=== PATIENT | female | born 1985 | race Caucasian/White ===

== ENCOUNTER → 2024-12-02 | Outpatient (CLI) | payer OTHER, SELFPAY ==
[2024-12-02 17:11] LABS: Absolute Lymphocyte Count 1.93 X10^3/uL (0.83-4.51); Absolute Neutrophil Count 5.7 X10^3/uL (2.0-7.7); Basophil# 0.04 X10^3/uL; Basophil% 0.5 % (0-1); Eosinophil# 0.07 X10^3/uL; Eosinophils% 0.8 % (0-5); Hemoglobin 12.4 g/dL (12.0-15.0); Lymphocyte # 1.93 X10^3/ul (0.83-4.51); Lymphocyte % 23.3 % (19-41); Mean Corp Hgb Conc 33.5 g/dL (32-36); Mean Corpuscular Hgb 28.6 pg (27.0-32.0); Mean Corpuscular Volume 85.5 fL (81-99); Mean Platelet Vol. 10.1 fl (6.2-12.0); NRBC Flagged by Analyzer 0 % (0-5); Neutrophil # 5.71 X10^3/uL (2.7-7.7); Neutrophil % 68.9 % (47-70); Platelet Count 316 K/mm3 (150-450); RBC Distribution Width CV 12.8 % (11.6-14.6); RBC Distribution Width SD 39.8 fl (35.1-43.9); Red Blood Count 4.33 M/mm3 (4.2-5.4); White Blood Count 8.3 K/mm3 (4.4-11.0)
[2024-12-02 17:58] LABS: ALB/GLOB Ratio 1.4 RATIO (0.9-2.4); AST(SGOT) 22 U/L (<=31); Alanine Aminotransfer ALT/SGPT 18 U/L (<=34); Alkaline Phosphatase 72 U/L (35-104); Anion Gap 11 (5-15); BUN 12 mg/dL (4-19); Calcium,Total 9.2 mg/dL (7.6-11.0); Chloride 104 mmol/L (98-108); Cholesterol 191 mg/dL (<=200); Creatinine, Serum 0.83 mg/dL (0.70-1.20); EST Glomerular Filtration Rate 93 (>60); Globulin 2.8 g/dL (2.2-4.2); Glucose 113 mg/dL (70-99); High Density Lipoprotein 58 mg/dL; Low Density Lipoprotein Calc. 115 mg/dL; Protein, Total 6.8 g/dL (5.9-8.4); Sodium Level 137 mmol/L (133-145); Total Bilirubin 0.34 mg/dL (0.00-1.30); Triglycerides 93 mg/dL; Very Low Density Lipoprotein 19 mg/dL (5-40); cholesterol:hdl ratio screen 3.31
[2024-12-02 19:05] LABS: Hemoglobin A1c 5.2 % (<=5.6)
== END | disposition home or self-care (01) ==
LOC: VSLAB 15:37
PROVIDERS: PCP Nurse Practitioner Family; Visit Provider Nurse Practitioner Family
DX: Z00.00 Encounter for general adult medical examination without abnormal findings (principal); E55.9 Vitamin D deficiency, unspecified; E78.5 Hyperlipidemia, unspecified; E66.9 Obesity, unspecified
CPT/HCPCS: 36415; 80053; 80061; 82306; 83036; 84443; 85025

== ENCOUNTER → 2025-03-26 | Outpatient (CLI) | payer OTHER, SELFPAY ==
--- OUTSIDE RECORDS SUMMARY | 2025-03-26 10:43 | XMS RPT_ITS | CCD ---
Author Organization [facility] Care Team Providers Care Commissioning Agent Name Role Phone TJ MARIANO Attending Unavailable MORRIS AGUIRRE Referring Unavailable NO PRIMARY CARE, Primary Care Unavailable GABRIEL LOZANO Attending Unavailable MURALI BARRETO Referring Unavailable NO PRIMARY CARE, Primary Care Unavailable Unavailable Primary Care Provider Unavailkim e Caridad Elaine DO Unavailable Laura Turner Unavailable [phone] Unavailable Primary Care Provider UnavailAna Kenny MD Primary Care Provider JOHNNY MERLOS Referring Unavailable JOHNNY MERLOS Attending Unavailable BUENROSTRO, ANA Primary Care Unavailable EMORYJOHNNY Krishna Attending Unavailable BUENROSTRO, ANA Primary Care Unavailable EMORY JOHNNY Referring Unavailable SEBASTIAN CUTLER Attending Unavailable BUENROSTRO, ANA Primary Care Unavailable SEBASTIAN CUTLER Referring Unavailable BUENROSTRO, ANA Primary Care Unavailable Unavailable Primary Care Provider Unavailkim Alonso CONTACT WORKER LITHOGRAPHY-CBelem Primary Care Provider [phone] Gavin MEEKSCBelem Attending Provider Belem Roca Attending UnavailBelem Aguilera Primary Care Unavailkim krishna SELF Referring Unavailable CHELLY SALES Attending Unavailable SELF Referring Unavailable Medications Current Medications Medication Drug Class(es) Dates Sig (Normalized) Sig (Original) amoxicillin 875 mg / clavulanate 125 mg oral tablet (1 source) Penicillin-class Antibacterial Start: 09-09-2024 End: 09-16-2024 take 1 tablet by mouth twice daily amoxicillin-clavulan ate potassium (AUGMENTIN) 875-125 mg per tablet Indications: Sinobronchitis Take 1 tablet by mouth two times a day for 7 days. 14 tablet 09/09/2024 09/16/2024 Active cholecalciferol, vitamin D3, (VITAMIN D3 ORAL) (4 sources) cholecalciferol, vitamin D3, (VITAMIN D3 ORAL) Take by mouth. Active cholecalciferol, vitamin D3, (VITAMIN D3 ORAL) Take by mouth. 0 Active Comment on above: Take by mouth. levonorgestrel 0.780198 mg/hr intrauterine system (6 sources) Progestin, Progestin-containing Intrauterine Device Start: 03-27-2023 End: 03-25-2031 levonorgestrel (MIRENA) 21 mcg/24 hours (8 yrs) 52 mg IUD Indications: Encounter for IUD insertion 1 Each by INTRAUTERINE route as directed. 1 Each 03/27/2023 03/25/2031 Active Comment on above: 1 Each by INTRAUTERI NE route as directed. semaglutide (OZEMPIC SUBCUTANEOUS) (4 sources) semaglutide (OZE MPIC SUBCUTANEOUS) Inject subcutaneously. Active semaglutide (OZE MPIC SUBCUTANEOUS) Inject subcutaneously. 0 Active Comment on above: Inject subcutaneousl y. Completed/Discontinued Medications Medication Drug Class(es) Dates Sig (Normalized) Sig (Original) 47/iron/folate 1/dha (PNV-DHA ORAL) (1 source) End: 09-21-2021 47/iron/folate 1/dha (PNV-DHA ORAL) Take by mouth. 0 09/21/2021 Discontinued (Course of therapy completed) Comment on above: Take by mouth. sertraline 100 mg oral tablet (1 source) Serotonin Reuptake Inhibitor End: 09-21-2021 take 1 tablet by mouth once daily sertraline (ZOLOFT) 100 mg tablet Take 100 mg by mouth once daily. 0 09/21/2021 Discontinued (Course of therapy completed) Comment on above: Take 100 mg by mouth once daily. NEGATED: Highlighted row has not occurred! (3 sources) Start: 11-04-2022 End: 11-04-2022 Start: 10-30-2022 End: 10-30-2022 Problems Active Problems Problem Classification Problem Date Documented Date Episodic/Chronic Contraceptive and procreative management (6 sources) Patient encounter status; Translations: [Encounter for other general counseling and advice on contraception] Onset: 12-22-2024 Episodic Disorders of lipid metabolism (7 sources) Familial hypercholesterolemia; Translations: [Familial hypercholesterolemia] Onset: 05-14-2018 04-05-2022 Chronic Immunizations and screening for infectious disease (1 source) Encounter for screening for human papillomavirus (HPV); Translations: [Encounter for screening for human papillomavirus (HPV)] Onset: 12-22-2024 Episodic Other ear and sense organ disorders (1 source) Ear pressure sensation; Translations: [Other specified disorders of ear, bilateral] 09-09-2024 Episodic Other lower respiratory disease (1 source) Persistent cough; Translations: [Persistent cough] 09-09-2024 Episodic Other nutritional; endocrine; and metabolic disorders (4 sources) Obese class I; Translations: [Obesity, unspecified] Onset: 08-08-2023 08-08-2023 Chronic Other screening for suspected conditions (not mental disorders or infectious disease) (2 sources) Cancer cervix screening status; Translations: [Encounter for screening for malignant neoplasm of cervix] Onset: 12-22-2024 12-22-2024 Episodic Other skin disorders (7 sources) Finding of neck region; Translations: [Localized swelling, mass and lump, neck] Onset: 06-26-2024 06-15-2024 Episodic Other skin disorders (1 source) Localized swelling, mass and lump, neck; Translations: [Localized swelling, mass and lump, neck] Onset: 06-26-2024 Episodic Other upper respiratory disease (1 source) Other specified disorders of nose and nasal sinuses; Translations: [Other disease of nasal cavity and sinuses] 09-09-2024 Episodic Other upper respiratory infections (1 source) Chronic sinusitis; Translations: [Chronic sinusitis, unspecified] 09-09-2024 Chronic Residual codes; unclassified (13 sources) H/O: depression; Translations: [Personal history of other complications of , childbirth and the puerperium] Onset: 05-14-2018 06-19-2018 Episodic Spondylosis; intervertebral disc disorders; other back problems (1 source) Cervical spondylosis; Translations: [Spondylosis without myelopathy or radiculopathy, cervical region] 07-24-2024 Chronic Spondylosis; intervertebral disc disorders; other back problems (4 sources) Neck pain; Translations: [Cervicalgia] Onset: 07-23-2024 07-23-2024 Episodic Past or Other Problems Problem Classification Problem Date Documented Da te Episodic/Chronic Other and delivery including normal (5 sources) Normal ; Translations: [Encounter for supervision of other normal , unspecified trimester] Onset: 06-19-2018 Resolved: 08-08-2023 06-19-2018 Episodic Other upper respiratory infections (7 sources) Acute upper respiratory infection, unspecified; Translations: [Acute sinusitis] Onset: 10-30-2022 Episodic Unclassified (3 sources) Finding of neck region 06-15-2024 Unclassified (1 source) Patient encounter status 12-22-2024 Results Test Name Value Interpretation Reference Range Facility CNOVon 12-22-2024 CNOV Office Visit (OBGYWM ) SHANNON THOMPSON ([id number]) 1985 F Date Time Provider Department 12/22/24 2:00 PM CHELLY SALES OBTURNER During your visit today, we recorded the following information about you: Blood pressure Weight Height Last Period 12066 86.2 kg 1.702 m 12/16/24 Chelly Sales MD 12/22/2024 5:09 PM Signed Redevelopment Manager offered: Patient declines. CJ is a 39 year old who presents for an annual gynecologic exam with complaints, irregular bleeding. Has a Mirena but had had bleeding since it was placed. has appointmetn for vasectomy. Plans to have the IUD removed once her is cleared. Still get period: Yes Menses: breakthough bleeding constantly Menstrual flow: Light Bleeding amount bothersome: Yes Bleeding between periods: Yes Period symptoms: None Sexually active: Yes Contraception: IUD Contraception frequency: Always HPV vaccine: No HPV:negative Last pap smear: 2021 History of abnormal pap: Yes Colposcopy: Yes: as a teen Leep: No. Cone biopsy: No. Bothersome pelvic pain: No Last mammogram: never OB History Gravida2 Para2 Term2 Preterm0 AB0 Living2 SAB0 IAB0 Ectopic0 Multiple0 Live Births2 Stud Setter History LMP: 07/20/2023 (Approximate), Having periods Age at Menarche: 14 Age at First : 30 Age at Menopause: Stud Setter History Comments: Sexual Activity: Yes; Male Contraception: I.U.D. PAST MEDICAL HISTORY Diagnosis Date History of depression treated successfully with Zoloft PAST SURGICAL HISTORY Procedure Laterality Date CRYOCAUTERY OF CERVIX ??CIN1 age ~16-17-> all normal after that TOOTH EXTRACTION FAMILY HISTORY Problem Relation Age of Onset Heart Attack Father age 40 Breast Cancer No Family History Cervical Cancer No Family History Ovarian cancer No Family History Uterine Cancer No Family History Colon Cancer No Family History Pancreatic Cancer No Family History Prostate Cancer No Family History SOCIAL HISTORY Social History Tobacco Use Smoking status: Never Smokeless tobacco: Never Vaping Use Vaping status: Never Used Substance Use Topics Alcohol use: No Drug use: No REVIEW OF SYSTEMS Abdomen: No abdominal pain, nausea, vomiting, diarrhea, or constipation. No bloating, early satiety, indigestion, or increased flatulence. Bladder: No dysuria, gross hematuria, urinary frequency, urinary urgency, or incontinence. Breast: No breast lumps, nipple d/c, overlying skin changes, redness or skin retraction. Allergies and current medication updated:Yes SENSITIVE EXAM: The sensitive examination was discussed with the Patient or Patient's Authorized Bartender Manager. As applicable, any other physician, advance practice provider, medical student, or other health professional student that will be observing or involved in the sensitive examination for educational or training purposes was discussed with the Patient or Authorized Bartender Manager. The Patient or Authorized Bartender Manager has agreed to proceed with the sensitive examination. (Sensitive examination includes inspection and/or palpation of the breasts, pelvis, prostate and anorectal regions). EXAM: LMP 07/20/2023 GENERAL: pleasant, female in no apparent distress HEENT: Normocephalic, atraumatic, mucus membranes moist, and no lesions NECK: Supple, full range of motion, no adenopathy, and thyroid normal DERMATOLOGY: Normal, without lesions, non-icteric, and non-hirsute BREAST: soft, non-tender, symmetric, no dominant mass, normal nipple-areolar complex, no lymphadenopathy, and no nipple discharge CHEST: Normal inspiratory effort ABDOMEN: soft, non-tender, and no masses PELVIC: external genitalia normal, normal Bartholin's glands, urethra, [place]'s glands, no vulvar lesions, no cervical lesions, good vaginal support, physiologic discharge present, normal appearing perineal body and perianal region, IUD strings visible BIMANUAL: uterus normal size, shape and consistency, no adnexal masses, and non-tender RECTOVAGINAL: deferred. NEURO: alert and oriented x3,exam grossly non-focal EXTREMITIES: normal ASSESSMENT/PLAN: 1) Health maintenance: Pap done with HPV. 2) Contraception: IUD. Contraceptive options reviewed and information provided. 3) STD screening: Declined STD check. 4) Follow up after vasectomy complete Chelly Sales MD Referring Provider: SELF [200] Allergies As of Date: 12/22/2024 (No Known Allergies) Date Reviewed: 12/22/2024 Reviewed by: Chelly Sales MD - Fully Assessed Reason for Visit: Well Woman [1463] Primary Visit Diagnosis:Encounter for gynecological examination (general) (routine) without abnormal findings [Z01.419] Other Visit Diagnoses:Screening for cervical cancer [Z12.4] Encounter for screening for human papillomavirus (HPV) [Z11.51] Encounter for IUD removal [Z (more content not included)... Normal [facility] HIGH RISK HUMAN PAPILLOMA JENNIFER (HPV), PCR FOR DETECTION AND GENOTYPINGon 12-22-2024 HPV 16 Ag Ql (Unsp spec) Not detected Normal Not detec [facility] Comment on above: Order Comment: Speci men Type: FLUID SPECIMEN [facility] Address: [address] [place] [address] Performed By: #### H PVHRT #### [facility] CLIA [id number] [address] [place] [address] [place] HPV 18 Ag Ql (Unsp spec) Not detected Normal Not detec susy [facility] Comment on above: Order Comment: Speci men Type: FLUID SPECIMEN [facility] Address: [address] [place] [address] Performed By: #### H PVHRT #### [facility] CLIA [id number] [address] [place] [address] [place] HPV 31+33+35+39+45+51+52+56+ 58+59+66+68 DNA BENEDICT+probe Ql (Cvx) Not detected Normal Not detected [facility] Comment on above: Order Comment: Speci men Type: FLUID SPECIMEN [facility] Address: [address] [place] [address] Result Comment: High Risk HPV Other Type includes HPV types 31, 33, 35, 39, 45, 51, 52, 56, 58, 59, 66 and 68. Performed By: #### H PVHRT #### [facility] CLIA [id number] [address] [place] [address] [place] PAP TESTon 12-22-2024 ADEQUACY Normal [facility] Comment on above: Order Comment: Speci men Type: FLUID SPECIMEN [facility] Address: [address] [place] [address] Result Comment: Sati sfactory for interpretation. Transformation zone present Performed By: #### L [id number] #### [facility] CLIA [id number] [address] [place] [address], [address] [place] [address] [place] [facility] CLIA [id number] [address] [place] [address] [place] CASE REPORT Normal [facility] Comment on above: Order Comment: Speci men Type: FLUID SPECIMEN [facility] Address: [address] [place] [address] Result Comment: Gyne cologic Cytology Report Case: [id number] Authorizing Provider: Chelly Sales MD Collected: 12/22/2024 02:53 PM Ordering Location: OB/Gynecology Received: 12/23/2024 07:15 AM First Screen: Justin Acosta Tech Specimen: Pap Test, ThinPrep, Cervix Performed By: #### L [id number] #### [facility] CLIA [id number] [address] [place] [address], [address] [place] [address] [place] [facility] CLIA [id number] [address] [place] [address] [place] CLINICAL HISTORY, CYTOLOGY, MAINTENANCE SHOP LABORER Routine Exam Normal [facility] Comment on above: Order Comment: Speci men Type: FLUID SPECIMEN [facility] Address: [address] [place] [address] Performed By: #### L [id number] #### [facility] CLIA [id number] [address] [place] [address] 3, [address] [place] [address] [place] [facility] CLIA [id number] [address] [place] [address] [place] [address] [facility] Normal [facility] Comment on above: Order Comment: Speci men Type: FLUID SPECIMEN [facility] Address: [address] [place] [address] Result Comment: Tech nical component, teacher aide clerical screening performed at: [facility], [address] [place] [address], [address], [place] [address] CLIA: [id number] Diagnostic interpretation performed at: [facility], [address] [place] [address], [facility] [address], [address], [place] [address] CLIA# [id number] Willow Analyst: Guero Bhardwaj MD Performed By: #### L [id number] #### [facility] CLIA [id number] [address] [place] [address] 3, [address] [place] [address] [place] [facility] CLIA [id number] [address] [place] [address] [place] INTERPRETATION, CYTOLOGY, MAINTENANCE SHOP LABORER Normal [facility] Comment on above: Order Comment: Speci men Type: FLUID SPECIMEN [facility] Address: [address] [place] [address] Result Comment: Nega tive for intraepithelial lesion or malignancy. at 0931 EDT Performed By: #### L [id number] #### [facility] CLIA [id number] [address] [place] [address] 3, [address] [place], [place] [id number] [place] [facility] CLIA [id number] [address] [place] [address] [place] [address] [place] LMP 12/16/2024 Normal [facility] Comment on above: Order Comment: Speci men Type: FLUID SPECIMEN [facility] Address: [address] [place] [address] Performed By: #### L [id number] #### [facility] CLIA [id number] [address] [place] [address] 3, [address] [place] [address] [place] [facility] CLIA [id number] [address] [place] [address] [place] PAP DISCLAIMER COMMENT The Pap Smear is a screening test for cervical cancer. False negative results occur with all screening tests, emphasizing the need for rescreening at recommended intervals, and clinical correlation. Normal [facility] Comment on above: Order Comment: Speci men Type: FLUID SPECIMEN [facility] Address: [address] [place] [address] Performed By: #### L [id number] #### [facility] CLIA [id number] [address] [place] [address], [address] [place] [address] [place] [facility] CLIA [id number] [address] [place], [place] [address] [place] PAP CHIEF RESOURCE OFFICER COMMENT This specimen has been analyzed by the FDA-approved Real SavvyTM System, which uses digital imaging and an enhanced artificial intelligence image analysis algorithm to identify ca of interest on the microscopic slide, to assist the cell attendant and pathologist in evaluating cells on ThinPrep Pap tests. Following analysis, ca of interest on the microscopic slide selected by the algorithm are reviewed by a cell attendant. If a sample requires hierarchical review, the pathologist will review the same ca of interest selected by the algorithm prior to final interpretation. Normal [facility] Comment on above: Order Comment: Speci men Type: FLUID SPECIMEN [facility] Address: [address] [place] [address] Performed By: #### L [id number] #### [facility] CLIA [id number] [address] [facility] [address] [place] [address] [place] [facility] CLIA [id number] [address] [facility] Absolute lymphocyte countOrd ered By: [facility] Belem Alonso on 12-02-2024 Lymphocytes Auto (Unsp spec) [#/Vol] 1.93 10*3/uL 0.83-4.51 [facility] Absolute neutrophil countOrd ered By: [facility] Belem Alonso on 12-02-2024 Neutrophils (Bld) [#/Vol] 5.7 10*3/uL 2.0-7.7 [facility] Anion gap in Serum or Plasma Ordered By: [facility] Belem Alonso on 12-02-2024 Anion gap [Moles/Vol] 11 mmol/L 5- [facility] Automated lymphocyte count a s percentage of total leukocytesOrdered By: [facility] on 12-02-2024 Lymphocytes/100 WBC Auto (Unsp spec) 23.3 % 19- [facility] BUN/creatinine ratioOrdered By: [facility] on 12-02-2024 Urea nitrogen/Creatinine [Mass ratio] 15.0 mg/mg 10- [facility] Basophil percentageOrdered B y: [facility] Belem Alonso on 12-02-2024 Basophils/100 WBC (Bld) 0.5 % 0-1 [facility] Bilirubin, totalOrdered By: [facility] Belem Alonso on 12-02-2024 Bilirubin [Mass/Vol] 0.34 mg/dL 0.00-1.30 [facility] CBC W/Diff, Automatedon 11-22 Absolute Lymph 1.93 X10 3/uL Normal 0.83-4.51 [facility] Comment on above: Performed By: #### L 100.0100, L500.4100, L501.9520, L500.4050, L506.1001, L501.9985 #### [facility] [address] [place], [address] Absolute Neut 5.7 X10 3/uL Normal 2.0-7.7 [facility] Comment on above: Performed By: #### L 100.0100, L500.4100, L501.9520, L500.4050, L506.1001, L501.9985 #### [facility] [address] [place], [address] Basophils/100 WBC (Bld) 0.5 % Normal 0-1 [facility] Comment on above: Performed By: #### L 100.0100, L500.4100, L501.9520, L500.4050, L506.1001, L501.9985 #### [facility] [address] [place], [address] Eosinophils/100 WBC (Bld) 0.8 % Normal 0-5 [facility] Comment on above: Performed By: #### L 100.0100, L500.4100, L501.9520, L500.4050, L506.1001, L501.9985 #### [facility] [address] [place], [address] Erythrocyte distribution width (RBC) [Ratio] 12.8 % Normal 11.6-14.6 [facility] Comment on above: Performed By: #### L 100.0100, L500.4100, L501.9520, L500.4050, L506.1001, L501.9985 #### [facility] [address] [place], [address] Hematocrit (Bld) [Volume fraction] 37.0 % Normal 37-47 [facility] Comment on above: Performed By: #### L 100.0100, L500.4100, L501.9520, L500.4050, L506.1001, L501.9985 #### [facility] [address] [place], [address] Hemoglobin (Bld) [Mass/Vol] 12.4 g/dL Normal 12.0-15.0 [facility] Comment on above: Performed By: #### L 100.0100, L500.4100, L501.9520, L500.4050, L506.1001, L501.9985 #### [facility] [address] [place], [address] IG% 0.500 Normal 0.0-0.9 [facility] Comment on above: Result Comment: IG% - Immature Granulocytes (promyelocytes, myelocytes and metamyelocytes) > 1% indicates that a LEFT SHIFT is Present. Performed By: #### L 100.0100, L500.4100, L501.9520, L500.4050, L506.1001, L501.9985 #### [facility] [address] [place], [address] Lymphocytes/100 WBC (Bld) 23.3 % Normal 19-41 [facility] Comment on above: Performed By: #### L 100.0100, L500.4100, L501.9520, L500.4050, L506.1001, L501.9985 #### [facility] [address] [place], [address] MCH (RBC) [Entitic mass] 28.6 pg Normal 27.0-32.0 [facility] Comment on above: Performed By: #### L 100.0100, L500.4100, L501.9520, L500.4050, L506.1001, L501.9985 #### [facility] [address] [place], [address] MCHC (RBC) [Mass/Vol] 33.5 g/dL Normal 32-36 [facility] Comment on above: Performed By: #### L 100.0100, L500.4100, L501.9520, L500.4050, L506.1001, L501.9985 #### [facility] [address] [place], [address] MCV (RBC) [Entitic vol] 85.5 fL Normal 81-99 [facility] Comment on above: Performed By: #### L 100.0100, L500.4100, L501.9520, L500.4050, L506.1001, L501.9985 #### [facility] [address] [place], [address] Monocytes/100 WBC (Bld) 6.0 % Normal 0-10 [facility] Comment on above: Performed By: #### L 100.0100, L500.4100, L501.9520, L500.4050, L506.1001, L501.9985 #### [facility] [address] [place], [address] Neutrophils/100 WBC (Bld) 68.9 % Normal 47-70 [facility] Comment on above: Performed By: #### L 100.0100, L500.4100, L501.9520, L500.4050, L506.1001, L501.9985 #### [facility] [address] [place], [address] Nucleated RBC (Bld) [#/Vol] 0 10*3/uL Normal 0-5 [facility] Comment on above: Performed By: #### L 100.0100, L500.4100, L501.9520, L500.4050, L506.1001, L501.9985 #### [facility] [address] [place], [address] Platelet mean volume (Bld) [Entitic vol] 10.1 fL Normal 6.2-12.0 [facility] Comment on above: Performed By: #### L 100.0100, L500.4100, L501.9520, L500.4050, L506.1001, L501.9985 #### [facility] [address] [place], [address] Platelets (Bld) [#/Vol] 316 10*3/uL Normal 150-450 [facility] Comment on above: Performed By: #### L 100.0100, L500.4100, L501.9520, L500.4050, L506.1001, L501.9985 #### [facility] [address] [place], [address] RBC (Bld) [#/Vol] 4.33 10*6/uL Normal 4.2-5.4 [facility] Comment on above: Performed By: #### L 100.0100, L500.4100, L501.9520, L500.4050, L506.1001, L501.9985 #### [facility] [address] [place], [address] RDW SD 39.8 fl Normal 35.1-43.9 [facility] Comment on above: Performed By: #### L 100.0100, L500.4100, L501.9520, L500.4050, L506.1001, L501.9985 #### [facility] [address] [place], [address] WBC (Bld) [#/Vol] 8.3 10*3/uL Normal 4.4-11.0 [facility] Comment on above: Performed By: #### L 100.0100, L500.4100, L501.9520, L500.4050, L506.1001, L501.9985 #### [facility] [address] [place], [address] Calculated very low density lipoprotein (VLDL) cholesterol measurementOrdered By: [facility] Belem Alonso on 12-02-2024 Calculated very low density lipoprotein (VLDL) cholesterol measurement 19 mg/dL 5-40 [facility] Carbon dioxide, total [Moles /volume] in Central venous bloodOrdered By: [facility] Belem Alonso on 12-02-2024 CO2 [Moles/Vol] 22.0 mmol/L 21.0-32.0 [facility] Chloride assayOrdered By: VS Rick Alonso on 12-02-2024 Chloride [Moles/Vol] 104 mmol/L 98-108 [facility] Comprehensive Metabolic Prof ilon 12-02-2024 Albumin [Mass/Vol] 4.0 g/dL Normal 3.5-5.0 [facility] Comment on above: Performed By: #### L 100.0100, L500.4100, L501.9520, L500.4050, L506.1001, L501.9985 #### [facility] [address] [place], [address] Albumin/Globulin [Mass ratio] 1.4 {ratio} Normal 0.9-2.4 [facility] Comment on above: Performed By: #### L 100.0100, L500.4100, L501.9520, L500.4050, L506.1001, L501.9985 #### [facility] [address] [place], [address] ALK PHOS 72 U/L Normal 35-104 [facility] Comment on above: Performed By: #### L 100.0100, L500.4100, L501.9520, L500.4050, L506.1001, L501.9985 #### [facility] [address] [place], [address] ALT [Catalytic activity/Vol] 18 U/L Normal <=34 [facility] Comment on above: Performed By: #### L 100.0100, L500.4100, L501.9520, L500.4050, L506.1001, L501.9985 #### [facility] [address] [place], [address] AST [Catalytic activity/Vol] 22 U/L Normal <=31 [facility] Comment on above: Performed By: #### L 100.0100, L500.4100, L501.9520, L500.4050, L506.1001, L501.9985 #### [facility] [address] [place], [address] Bilirubin [Mass/Vol] 0.34 mg/dL Normal 0.00-1.30 [facility] Comment on above: Performed By: #### L 100.0100, L500.4100, L501.9520, L500.4050, L506.1001, L501.9985 #### [facility] [address] [place], [address] BUN/CRE 15.0 RATIO Normal 10-20 [facility] Comment on above: Performed By: #### L 100.0100, L500.4100, L501.9520, L500.4050, L506.1001, L501.9985 #### [facility] [address] [place], [address] Calcium [Mass/Vol] 9.2 mg/dL Normal 7.6-11.0 [facility] Comment on above: Performed By: #### L 100.0100, L500.4100, L501.9520, L500.4050, L506.1001, L501.9985 #### [facility] [address] [place], [address] Chloride [Moles/Vol] 104 mmol/L Normal 98-108 [facility] Comment on above: Performed By: #### L 100.0100, L500.4100, L501.9520, L500.4050, L506.1001, L501.9985 #### [facility] [address] [place], [address] CO2 [Moles/Vol] 22.0 mmol/L Normal 21.0-32.0 [facility] Comment on above: Performed By: #### L 100.0100, L500.4100, L501.9520, L500.4050, L506.1001, L501.9985 #### [facility] [address] [place], [address] Creatinine [Mass/Vol] 0.83 mg/dL Normal 0.70-1.20 [facility] Comment on above: Performed By: #### L 100.0100, L500.4100, L501.9520, L500.4050, L506.1001, L501.9985 #### [facility] [address] [place], [address] GAP 11 Normal 5-15 [facility] Comment on above: Performed By: #### L 100.0100, L500.4100, L501.9520, L500.4050, L506.1001, L501.9985 #### [facility] [address] [place], [address] GFR/1.73 sq M.predicted among non-blacks MDRD (S/P/Bld) [Vol rate/Area] 93 mL/min/{1.73_m2} Normal >60 [facility] Comment on above: Result Comment: mL/m in/1.73m2 CKD-EPI Creatinine Equation (2020) Performed By: #### L 100.0100, L500.4100, L501.9520, L500.4050, L506.1001, L501.9985 #### [facility] [address] [place], [address] Globulin (S) [Mass/Vol] 2.8 g/dL Normal 2.2-4.2 [facility] Comment on above: Performed By: #### L 100.0100, L500.4100, L501.9520, L500.4050, L506.1001, L501.9985 #### [facility] [address] [place], [address] Glucose [Mass/Vol] 113 mg/dL High 70-99 [facility] Comment on above: Performed By: #### L 100.0100, L500.4100, L501.9520, L500.4050, L506.1001, L501.9985 #### [facility] [address] [place], [address] Potassium [Moles/Vol] 4.0 mmol/L Normal 3.3-5.1 [facility] Comment on above: Performed By: #### L 100.0100, L500.4100, L501.9520, L500.4050, L506.1001, L501.9985 #### [facility] [address] [place], [address] Sodium [Moles/Vol] 137 mmol/L Normal 133-145 [facility] Comment on above: Performed By: #### L 100.0100, L500.4100, L501.9520, L500.4050, L506.1001, L501.9985 #### [facility] [address] [place], [address] T PROT 6.8 g/dL Normal 5.9-8.4 [facility] Comment on above: Performed By: #### L 100.0100, L500.4100, L501.9520, L500.4050, L506.1001, L501.9985 #### [facility] [address] [place], [address] Urea nitrogen [Mass/Vol] 12 mg/dL Normal 4-19 [facility] Comment on above: Performed By: #### L 100.0100, L500.4100, L501.9520, L500.4050, L506.1001, L501.9985 #### [facility] [address] [place], [address] Eosinophil percentageOrdered By: [facility] Belem Alonso on 12-02-2024 Eosinophils/100 WBC (Bld) 0.8 % 0-5 [facility] Erythrocyte distribution wid th ratioOrdered By: [facility] Belemchase Alonso on 12-02-2024 Erythrocyte distribution width (RBC) [Ratio] 12.8 % 11.6-14.6 [facility] Erythrocyte distribution wid th standard deviationOrdered By: [facility] 12-02-2024 Erythrocyte distribution width (RBC) [Ratio] 39.8 fl 35.1-43.9 [facility] Glomerular filtration rate ( GFR) estimation/1.73 sq m using serum, plasma, or whole bOrdered By: [facility] 12-02-[facility] GFR/1.73 sq M.predicted among non-blacks MDRD (S/P/Bld) [Vol rate/Area] 93 mL/min/{1.73_m2} >60 [facility] Comment on above: mL/min/1.73m2 CKD-EP I Creatinine Equation (2020) Hematocrit Auto (Bld) [Volum e fraction]Ordered By: [facility] 12-02-2024 Hematocrit (Bld) [Volume fraction] 37.0 % 37-47 [facility] Hemoglobin A1con 12-02-2024 HbA1c (Bld) [Mass fraction] 5.2 % Normal <=5.6 [facility] Comment on above: Result Comment: Norm al < 5.7 % Prediabetic 5.7 - 6.4 % Diabetic >or= 6.5 % Please note range changes. Performed By: #### L 100.0100, L500.4100, L501.9520, L500.4050, L506.1001, L501.9985 #### [facility] [address] [place] [address]. [place], [address] Hemoglobin A1c percentageOrd ered By: [facility] Belem Alonso on 12-02-2024 HbA1c (Bld) [Mass fraction] 5.2 % <5.7 [facility] Comment on above: Normal < 5.7 % Predi abetic 5.7 - 6.4 % Diabetic >or= 6.5 % Please note range changes. Hemoglobin measurementOrdere d By: [facility] Belem Alonso on 12-02-2024 Hemoglobin (Bld) [Mass/Vol] 12.4 g/dL 12.0-15.0 [facility] Immature granulocytes/100 WB C Auto (Bld)Ordered By: [facility] Belem Alonso on 12-02-2024 Immature granulocytes/100 WBC (Bld) 0.500 % 0.0-0.9 [facility] Comment on above: IG% - Immature Granu locytes (promyelocytes, myelocytes and metamyelocytes) > 1% indicates that a LEFT SHIFT is Present. LDL calc ser/plasOrdered By: [facility] on 12-02-2024 Cholesterol in LDL [Mass/Vol] 115 mg/dL [facility] Comment on above: Aidmrrfenf=234-817 m g/dL & Higher Zaqv=181 mg/dL or greater Laboratory - Chemistry and C hemistry - challengeOrdered By: [facility] Gavin on 12-02-2024 AST [Catalytic activity/Vol] 22 U/L <32 [facility] Lipid Profileon 12-02-2024 CHOL:HDL 3.31 Normal [facility] Comment on above: Performed By: #### L 100.0100, L500.4100, L501.9520, L500.4050, L506.1001, L501.9985 #### [facility] [address] [place], [address] Cholesterol [Mass/Vol] 191 mg/dL Normal <=200 [facility] Comment on above: Result Comment: Chol esterol level, Desirable <200 mg/dL Borderline high cholesterol 200-239 mg/dL High cholesterol >=240 mg/dL Recommendations of the NCEP Adult Treatment Panel for the following risk-cutoff thresholds for the [place] population. Performed By: #### L 100.0100, L500.4100, L501.9520, L500.4050, L506.1001, L501.9985 #### [facility] [address] [place], [address] Cholesterol in HDL [Mass/Vol] 58 mg/dL Normal [facility] Comment on above: Result Comment: Kylah onal Cholesterol Education Program (NCEP) guidelines: <40 mg/dL: Low HDL-cholesterol (major risk factor for CHD) >= 60 mg/dL: High HDL-cholesterol (negative risk factor for CHD) HDL-cholesterol is affected by a number of factors, e.g. smoking, exercise, hormones, sex and age. Performed By: #### L 100.0100, L500.4100, L501.9520, L500.4050, L506.1001, L501.9985 #### [facility] [address] [place], [address] Cholesterol in LDL [Mass/Vol] 115 mg/dL Normal [facility] Comment on above: Result Comment: Bord wtcmcw=087-768 mg/dL Higher Wvge=274 mg/dL or greater Performed By: #### L 100.0100, L500.4100, L501.9520, L500.4050, L506.1001, L501.9985 #### [facility] [address] [place], [address] Cholesterol in VLDL [Mass/Vol] 19 mg/dL Normal 5-40 [facility] Comment on above: Performed By: #### L 100.0100, L500.4100, L501.9520, L500.4050, L506.1001, L501.9985 #### [facility] [address] [place], [address] Triglyceride [Mass/Vol] 93 mg/dL Normal [facility] Comment on above: Result Comment: The drugs N-Acetylcysteine and Metamizole may falsely depress this assay. Normal range: <150 mg/dL Borderline High: 150-199 mg/dL High: 200-499 mg/dL Very High: >500 mg/dL Performed By: #### L 100.0100, L500.4100, L501.9520, L500.4050, L506.1001, L501.9985 #### [facility] [address] [place], [address] MCV (mean corpuscular volume ) determinationOrdered By: [facility] Belem Alonso on 12-02-2024 MCV (RBC) [Entitic vol] 85.5 fL 81-99 [facility] Mean corpuscular hemoglobin (MCH) determinationOrdered By: [facility] Belem Alonso on 12-02-2024 MCH (RBC) [Entitic mass] 28.6 pg 27.0-32.0 [facility] Mean corpuscular hemoglobin concentration (MCHC) determinationOrdered By: [facility] Belem Alonso on 12-02-2024 MCHC (RBC) [Mass/Vol] 33.5 g/dL 32-36 [facility] Mean platelet volume determi nationOrdered By: [facility] Belem Alonso on 12-02-2024 Platelet mean volume (Bld) [Entitic vol] 10.1 fL 6.2-12.0 [facility] Monocyte percentageOrdered B y: [facility] Belem Alonso on 12-02-2024 Monocytes/100 WBC (Bld) 6.0 % 0-10 [facility] Neutrophil percentageOrdered By: [facility] Belem Alonso on 12-02-2024 Neutrophils/100 WBC (Bld) 68.9 % 47-70 [facility] Nucleated red blood cell per centageOrdered By: [facility] Belem Alonso on 12-02-2024 Nucleated RBC/100 WBC (Bld) [Ratio] 0 % 0-5 [facility] Platelet countOrdered By: [facility] Belem Alonso on 12-02-2024 Platelets (Bld) [#/Vol] 316 10*3/uL 150-450 [facility] Potassium measurement (mass/ volume)Ordered By: [facility] Belem Alonso on 12-02-2024 Potassium (Unsp spec) [Mass/Vol] 4.0 mmol/L 3.3-5.1 [facility] RBC Auto (Bld) [#/Vol]Ordere d By: [facility] Belem Alonso on 12-02-2024 RBC (Bld) [#/Vol] 4.33 10*6/uL 4.2-5.4 [facility] Screening total cholesterol/ high density lipoprotein (HDL) cholesterol ratioOrdered By: [facility] Belem Alonso on 12-02-2024 Cholesterol.total/Choles terol in HDL [Mass ratio] 3.31 {ratio} [facility] Serum creatinine measurement (mass/volume)Ordered By: [facility] Belem Alonso on 12-02-2024 Creatinine [Mass/Vol] 0.83 mg/dL 0.70-1.20 [facility] Serum globulin measurementOr dered By: [facility] Belem Alonso on 12-02-2024 Globulin (S) [Mass/Vol] 2.8 g/dL 2.2-4.2 [facility] Serum glucose measurement (m ass/volume)Ordered By: [facility] Belem Alonso on 12-02-2024 Glucose [Mass/Vol] 113 mg/dL High 70-99 [facility] Serum or plasma alanine cook otransferase (ALT) measurementOrdered By: [facility] Belem Alonso on 12-02-2024 ALT [Catalytic activity/Vol] 18 U/L <35 [facility] Serum or plasma albumin mary urement (mass/volume)Ordered By: [facility] Belem Alonso on 12-02-2024 Albumin [Mass/Vol] 4.0 g/dL 3.5-5.0 [facility] Serum or plasma albumin/glob ulin mass ratioOrdered By: [facility] Belem Alonso on 12-02-2024 Albumin/Globulin [Mass ratio] 1.4 {ratio} 0.9-2.4 [facility] Serum or plasma alkaline hansel sphatase measurementOrdered By: [facility] Belem Alonso on 12-02-2024 ALP [Catalytic activity/Vol] 72 U/L 35-104 [facility] Serum or plasma calcium mary urement (mass/volume)Ordered By: [facility] Belem Alonso on 12-02-2024 Calcium [Mass/Vol] 9.2 mg/dL 7.6-11.0 [facility] Serum or plasma cholesterol in HDL measurement (mass/volume)Ordered By: [facility] Belem Alonso on 12-02-2024 Cholesterol in HDL [Mass/Vol] 58 mg/dL >40 [facility] Comment on above: National Cholesterol Education Program (NCEP) guidelines:<40 mg/dL: Low HDL-cholesterol (major risk factor for CHD)>= 60 mg/dL: High HDL-cholesterol (negative risk factor for CHD)HDL-cholesterol is affected by a number of factors, e.g. smoking, exercise, hormones, sex and age. Serum or plasma cholesterol measurement (mass/volume)Ordered By: [facility] Belem Alonso on 12-02-2024 Cholesterol [Mass/Vol] 191 mg/dL <201 [facility] Comment on above: Cholesterol level, D esirable <200 mg/dLBorderline high cholesterol 200-239 mg/dLHigh cholesterol >=240 mg/dLRecommendations of the NCEP Adult Treatment Panel for the following risk-cutoff thresholds for the [place] population. Serum or plasma urea nitroge n measurement (mass/volume)Ordered By: [facility] Belem Alonso on 12-02-2024 Urea nitrogen [Mass/Vol] 12 mg/dL 4-19 [facility] Sodium levelOrdered By: [facility] on 12-02-2024 Sodium [Moles/Vol] 137 mmol/L 133-145 [facility] TSH DL <= 0.005 mIU/L QnOrde red By: [facility] on 12-02-2024 TSH Qn 1.220 uIU/mL 0.300-4.200 [facility] Thyroid Stim Hormone (TSH)on 12-02-2024 TSH 1.220 uIU/mL Normal 0.300-4.200 [facility] Comment on above: Performed By: #### L 100.0100, L500.4100, L501.9520, L500.4050, L506.1001, L501.9985 #### [facility] [address] [place], [place], [address] Total proteinOrdered By: [facility] on 12-02-2024 Protein [Mass/Vol] 6.8 g/dL 5.9-8.4 [facility] Triglycerides measurementOrd ered By: [facility] on 12-02-2024 Triglyceride [Mass/Vol] 93 mg/dL <199 [facility] Comment on above: The drugs N-Acetylcy steine and Metamizole may falsely depress this assay. Normal range: <150 mg/dLBorderline High: 150-199 mg/dLHigh: 200-499 mg/dLVery High: >500 mg/dL Vitamin D,25 Hydroxyon 12-02 Vitamin D 25-OH 23.0 ng/mL Low 30-100 [facility] Comment on above: Result Comment: Ariela min D Status Deficiency: <20 ng/mL (50nmol/L) Insufficiency: 20-30 ng/mL (50-75 nmol/L) Sufficiency: 30-100 ng/mL (75-250 nmol/L) Toxicity: >100 ng/mL (>250 nmol/L) Performed By: #### L 100.0100, L500.4100, L501.9520, L500.4050, L506.1001, L501.9985 #### [facility] [address] [place], [address] White blood cell (WBC) count Ordered By: [facility] Belem Alonso on 12-02-2024 WBC (Bld) [#/Vol] 8.3 10*3/uL 4.4-11.0 [facility] CNOVon 09-09-2024 CNOV Office Visit ([facility] ) SHANNON THOMPSON ([id number]) 1985 F Date Time Provider Department 09/09/24 12:15 PM FELICITA GOMEZ During your visit today, we recorded the following information about you: Temperature Pulse Respiration Blood pressure 97 degrees 61/minute 16/minute 127/84 Weight 85.8 kg Felicita Gomez PA-C 09/09/2024 12:43 PM Signed [facility] Subjective Patient presents with: Sinus Infection: Entered by patient Shannon Thompson is a 39 year old female with no significant past medical history who presents to express care today for evaluation of cough, nasal congestion, and sinus pressure x 10 days. No fevers. Review of Systems Constitutional: Negative for chills, diaphoresis and fatigue. HENT: Positive for congestion, ear pain (bilateral ear pressure) and sinus pressure. Eyes: Negative for discharge and redness. Respiratory: Positive for cough. Negative for shortness of breath. Musculoskeletal: Negative for back pain and neck pain. Skin: Negative for rash and wound. Neurological: Negative for weakness and headaches. All other systems reviewed and are negative. Objective LMP 07/20/2023 (Approximate) Physical Exam Vitals reviewed. Constitutional: General: She is not in acute distress. Appearance: Normal appearance. She is normal weight. She is not ill-appearing or toxic-appearing. Comments: The patient appears to be non-toxic, in no acute distress, and resting comfortably on the table. HENT: Head: Normocephalic and atraumatic. Right Ear: Tympanic membrane, ear canal and external ear normal. Left Ear: Tympanic membrane, ear canal and external ear normal. Nose: Congestion present. Eyes: Extraocular Movements: Extraocular movements intact. Cardiovascular: Rate and Rhythm: Normal rate and regular rhythm. Heart sounds: Normal heart sounds. No murmur heard. No friction rub. No gallop. Pulmonary: Effort: Pulmonary effort is normal. No respiratory distress. Breath sounds: Normal breath sounds. No wheezing. Musculoskeletal: General: Normal range of motion. Cervical back: Normal range of motion. Skin: General: Skin is warm and dry. Findings: No erythema or rash. Neurological: General: No focal deficit present. Mental Status: She is alert and oriented to person, place, and time. Mental status is at baseline. Psychiatric: Mood and Affect: Mood normal. Behavior: Behavior normal. Thought Content: Thought content normal. MDM History exam are consistent with acute sinobronchitis. Patient counseled regarding suspected diagnosis and given a prescription for Augmentin. Advised to follow-up with primary care as needed for any new or worsening symptoms. ASSESSMENT/PLAN: 1. Sinobronchitis - ICD9: 473.9, 490, ICD10: J32.9, J40 (primary diagnosis) - AMOXICILLIN 875 MG-POTASSIUM CLAVULANATE 125 MG TABLET 2. Persistent cough - ICD9: 786.2, ICD10: R05.3 3. Sinus pressure - ICD9: 478.19, ICD10: J34.89 4. Ear pressure, bilateral - ICD9: 388.8, ICD10: H93.8X3 Medical Decision Making: Problems: Low: Acute, uncomplicated illness or injury Risk: Minimal: Minimal risk from testing/treatment Moderate: Drug management Medical Decision Making Level: 3 - Low I spent a total of 20 minutes on the date of the service which included preparing to see the patient, [id number] patient care, completing clinical documentation, performing a medically appropriate examination, counseling and educating the patient/family/caregi gregor, and ordering medications, tests, or procedures. Felicita Gomez PA-C Procedures Felicita Gomez PA-C 09/09/2024 12:37 PM Signed [facility] PATIENT INFO ACUTE SINUSITIS OVERVIEW Rhinosinusitis, or more commonly sinusitis, is the medical term for inflammation (swelling) of the lining of the sinuses and nose. The sinuses are the hollow areas within the facial bones that are connected to the nasal openings. The sinuses are lined with mucous membranes, similar to the inside of the nose. There are two main types of sinusitis: acute and chronic. Acute sinusitis is inflammation that lasts for less than four weeks while chronic sinusitis lasts for more than 12 weeks. Acute sinusitis is common, affecting approximately one million people per year in the [place]. ACUTE SINUSITIS CAUSES The most common cause of acute sinusitis is a viral infection associated with the common cold. Bacterial sinusitis occurs much less commonly, in only 0.5 to 2 percent of cases, usually as a complication of viral sinusitis. Because antibiotics are effective only against bacterial, and not viral, infections, most people do not need antibiotics for acute sinusitis. ACUTE SINUSITIS SYMPTOMS Symptoms of acute sinusitis include: Nasal congestion or blockage Thick, yellow to green discharge from the nose Pain in the t (more content not included)... Normal [facility] XR CERVICAL SPINE 2-3 VIEWSo n 07-24-2024 XR CERVICAL SPINE 2-3 VIEWS Date of Exam: 07/23/24 Views: 2 views of the cervical spine (flexion and extension) Findings: There are minimal degenerative changes noted throughout the cervical spine. With flexion/extension views, no listhesis is present. Normal [facility] XR Cervical spine 2 or 3 Vie wson 01-31-2025 Date of Exam: 07/23/24 Views: 2 views of the cervical spine (flexion and extension) Findings: There are minimal degenerative changes noted throughout the cervical spine. With flexion/extension views, no listhesis is present. [facility] Office Visiton 07-23-2024 Follow-up visit [id number] Shannon Thompson 1985 F Date Provider Department Center 07/23/2024 [id number] C[facility] None Family History Problem Relation Age of Onset No Known Problems Maternal Grandfather No Known Problems Paternal Grandmother No Known Problems Daughter Heart attack Father 40.00 Cancer Maternal Grandmother Comments: Skin Hyperlipidemia Mother Hyperlipidemia Brother No Known Problems Daughter Heart disease Father Hyperlipidemia Father Heart attack Paternal Grandfather 40.00 Family Status - Relation Status Age at Maternal Grandfather Paternal Grandmother Daughter Alive Father Maternal Grandmother Mother Alive Brother Alive Daughter Alive Paternal Grandfather Level of Service:25069 AL OFFICE/OUTPATIENT NEW MODERATE MDM 45 MINUTES Reason for Visit and Comments: New Patient [542] Neck Pain [741550] Normal [facility] Progress Noteon 07-23-2024 Progress Note [facility] [address] [facility] [address] [address] [facility] [address] Dept: [phone] Dept Shannon Thompson 1985 [id number] 07/23/2024 Problem List: Neck pain Intermittent cervical radiculopathy Mild cervical spondylosis (M54.12) Cervical radiculopathy (M54.2) Cervical pain (neck) (M47.812) Cervical spondylosis Chief Complaint Patient presents with New Patient Neck Pain HPI: Shannon is a 39 y.o. female who is here today for evaluation of her cervical spine. Shannon is referred by self Current symptoms: Pain is located in the neck and upper back radiating to bilateral shoulders at times Numbness tingling: denies Weakness: denies Symptoms are severely affecting their quality of life during flare ups. Moderately at times. Inciting Event/Trauma: No specific cause - thinks it started from exercising Duration of Symptoms: a few years Associated neurologic complaints/Red flags: Gait/balance difficulty: denies Use of ambulatory aid?: no device Able to walk a city block: Yes Bowel/bladder incontinence: denies Urinary retention: No Saddle anesthesia: No Fine motor task difficulty/dropping things/handwriting changes: denies History of cancer: No Aggravating factors: Overhead activity Increased or prolonged activity Sleeping/lying down Reclining/leaning back Prolonged sitting/desk work Alleviating Factors: Changing positions, getting up and moving around Previous Treatment: PT: Yes - Andrei Velasco continuous for the past few years NSAIDS: OTC Spine/Joint Injections: Shoulder Opioid medications: none Muscle relaxers: cyclobenzaprine (Flexeril) - could only take at night due to drowsiness Oral steroids: in the past Nerve medications (gabapentin/Lyrica): none Pain management: No Chiropractor: Yes Previous spine surgery: none, has seen a few providers at [facility] in the past History of DVT/PE or hypercoagulable state (including history of relative): No Blood thinning medications: none 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 No Review of Systems Tobacco Use: Low Risk (07/24/2024) Patient History Smoking Tobacco Use: Never Smokeless Tobacco Use: Never Passive Exposure: Not on file No results found for: HGBA1C No Known Allergies No current outpatient medications on file. No current facility-administered medications for this visit. History reviewed. No pertinent past medical history. History reviewed. No pertinent surgical history. Social History Socioeconomic History Marital status: Spouse name: Not on file Number of children: Not on file Years of education: Not on file Highest education level: Not on file Occupational History Not on file Tobacco Use Smoking status: Never Smokeless tobacco: Never Substance and Sexual Activity Alcohol use: Yes Alcohol/week: 1.0 standard drink of alcohol Drug use: No Sexual activity: Not on file Other Topics Concern Not on file Social History Narrative Not on file Social Drivers of Health Financial Resource Strain: Low Risk (09/13/2021) Received from [facility] Overall Financial Resource Strain (CARDIA) Difficulty of Paying Living Expenses: Not hard at all Food Insecurity: No Food Insecurity (09/13/2021) Received from [facility] Hunger Vital Sign Worried About Running Out of Food in the Last Year: Never true Ran Out of Food in the Last Year: Never true Transportation Needs: No Transportation Needs (09/13/2021) Received from [facility] PRAPARE - Transportation Lack of Transportation (Medical): No Lack of Transportation (Non-Medical): No Physical Activity: Sufficiently Active (09/13/2021) Received from [facility] Exercise Vital Sign Days of Exercise per Week: 6 days Minutes of Exercise per Session: 30 min Stress: No Stress Concern Present (02/11/2020) Received from [facility] [place] [place] [employer] - Occupational Stress Questionnaire Feeling of Stress : Not at all Social Connections: Moderately Integrated (02/11/2020) Received from [facility] Social Connection and Isolation Panel [NHANES] Frequency of Communication with Friends and Family: More than three times a week Frequency of Social Gatherings with Friends and Family: Three times a week Attends Confucianism Services: 1 to 4 times per year Active Member of Clubs or Organizations: No Attends Club or Organization Meetings: Never Marital Status: Intimate Partner Violence: Not on file Housing Stability: Not on file Family History Problem Relation Name Age of Onset No Known Problems Maternal Grandfather No Known Problems Paternal Grandmother No Known Problems Daughter Heart attack Father 40.00 Cancer Maternal Grandmother Skin Hyperlipidemia (more content not included)... Normal [facility] XR Cervical spine 2 or 3 Vie wson 07-23-2024 Radiology Study observation (narrative) [facility] NECKon 06-26-2024 US NECK Patient Name: SHANNON THOMPSON : 1985 Exam Date/Time: 06/26/2024 10:09 Procedure: US NECK Ordering Provider: MERLOS JONATHAN Reason For Exam: r22.1 ULTRASOUND HEAD/NECK SOFT TISSUE CLINICAL INDICATION: Neck mass TECHNIQUE: Grayscale and color Doppler sonographic images of the palpable area of concern were obtained in the left submandibular region and left posterior neck. COMPARISON: None SITE OF CONCERN: Left submandibular region and left posterior neck. FINDINGS: A left level II lymph node is present with normal alba architecture and normal size, measuring 6 mm in thickness. An additional adjacent abnormal lymph node measures 4 mm. The left submandibular gland is normal in size, echogenicity and morphology, with no intraglandular ductal dilatation or mass. No posterior neck mass or adenopathy was identified on the left. IMPRESSION: No evidence of a neck mass or lymphadenopathy at the sites of concern in the left submandibular region or left posterior neck. If there is further clinical concern for a neck mass, a CT neck with contrast is the best imaging test. Report Dictated on Electronically Signed By: Jace Ricks MD Electronically Signed Date/Time: 06/26/2024 3:19 PM EST [facility] US Neckon 06-26-2024 No evidence of a neck mass or lymphadenopathy at the sites of concern in the left submandibular region or left posterior neck. If there is further clinical concern for a neck mass, a CT neck with contrast is the best imaging test. Report Dictated on Electronically Signed By: Jace Ricks MD Electronically Signed Date/Time: 06/26/2024 3:19 PM [facility] SHANN[facility]PS[facility] 1985 [id number] Exam Date/Time: 06/26/2024 10:09 Procedure: NECK Ordering Provider: MERLOS JONATHAN Reason For Exam: r22.1 ULTRASOUND HEAD/NECK SOFT TISSUE CLINICAL INDICATION: Neck mass TECHNIQUE: Grayscale and color Doppler sonographic images of the palpable area of concern were obtained in the left submandibular region and left posterior neck. COMPARISON: None SITE OF CONCERN: Left submandibular region and left posterior neck. FINDINGS: A left level II lymph node is present with normal alba architecture and normal size, measuring 6 mm in thickness. An additional adjacent abnormal lymph node measures 4 mm. The left submandibular gland is normal in size, echogenicity and morphology, with no intraglandular ductal dilatation or mass. No posterior neck mass or adenopathy was identified on the left. [facility] Jace Ricks M D - 06/26/2024 Patient Name: SHANNON THOMPSON : 1985 Exam Date/Time: 06/26/2024 10:09 Procedure: US NECK Ordering Provider: MERLOS JONATHAN Reason For Exam: r22.1 ULTRASOUND HEAD/NECK SOFT TISSUE CLINICAL INDICATION: Neck mass TECHNIQUE: Grayscale and color Doppler sonographic images of the palpable area of concern were obtained in the left submandibular region and left posterior neck. COMPARISON: None SITE OF CONCERN: Left submandibular region and left posterior neck. FINDINGS: A left level II lymph node is present with normal alba architecture and normal size, measuring 6 mm in thickness. An additional adjacent abnormal lymph node measures 4 mm. The left submandibular gland is normal in size, echogenicity and morphology, with no intraglandular ductal dilatation or mass. No posterior neck mass or adenopathy was identified on the left. IMPRESSION: No evidence of a neck mass or lymphadenopathy at the sites of concern in the left submandibular region or left posterior neck. If there is further clinical concern for a neck mass, a CT neck with contrast is the best imaging test. Report Dictated on Electronically Signed By: Jace Ricks MD Electronically Signed Date/Time: 06/26/2024 3:19 PM [facility] Radiology Study observation (narrative) [facility] NeckOrdered By: Jace sanchez on 06-26-2024 [facility] Work Phone: MR Cervical spine WO contras ton 06-20-2024 1. No neck masses identified. Please correlate clinically. 2. Degenerative changes with mild spinal stenosis at C5-6 and C6-7. Report Dictated on Electronically Signed By: Jace Ricks MD Electronically Signed Date/Time: 06/20/2024 8:44 AM [facility] Patient Name: SHANNON THOMPSON : 1985 Exam Date/Time: 06/15/2024 07:12 Procedure: MR CERVICAL SPINE WO CONTRAST Ordering Provider: MERLOS JONATHAN Reason For Exam: neck mass EXAM: MR CERVICAL SPINE WO CONTRAST CLINICAL HISTORY: neck mass neck pain for 2 years TECHNIQUE: Multiplanar, multisequence MRI of the cervical spine without contrast. COMPARISON: None FINDINGS: Craniocervical junction: Within normal limits. Soft tissues: No prevertebral or paraspinal edema. No neck mass is identified. Alignment: Straightening of the usual cervical lordotic curvature without focal spinal malalignment. Cord: Normal morphology and signal intensity. Vertebrae: Normal vertebral marrow signal intensity. No compression deformities or osseous lesions. Canal and foramina: C2-C3: Patent. C3-C4: Patent. C4-C5: Patent. C5-C6: Mild degenerative disc bulging and uncovertebral joint spurring. The bulging disc mildly narrows the spinal canal with anterior CSF space effacement. The normal CSF space dorsal to the cord is maintained. The neural foramina are mildly narrowed. C6-C7: Mild spinal stenosis secondary to a central disc protrusion which produces partial effacement of the CSF spaces ventral and dorsal to the cord, without cord compression. The neural foramina are patent. C7-T1: Patent. [facility] Jace Ricks M D - 06/20/2024 [facility] Name: SHANNON THOMPSON [facility] 1985 [id number] Exam Date/Time: 06/15/2024 07:12 Procedure: MR CERVICAL SPINE WO CONTRAST Ordering Provider: MERLOS JONATHAN Reason For Exam: neck mass EXAM: MR CERVICAL SPINE WO CONTRAST CLINICAL HISTORY: neck mass neck pain for 2 years TECHNIQUE: Multiplanar, multisequence MRI of the cervical spine without contrast. COMPARISON: None FINDINGS: Craniocervical junction: Within normal limits. Soft tissues: No prevertebral or paraspinal edema. No neck mass is identified. Alignment: Straightening of the usual cervical lordotic curvature without focal spinal malalignment. Cord: Normal morphology and signal intensity. Vertebrae: Normal vertebral marrow signal intensity. No compression deformities or osseous lesions. Canal and foramina: C2-C3: Patent. C3-C4: Patent. C4-C5: Patent. C5-C6: Mild degenerative disc bulging and uncovertebral joint spurring. The bulging disc mildly narrows the spinal canal with anterior CSF space effacement. The normal CSF space dorsal to the cord is maintained. The neural foramina are mildly narrowed. C6-C7: Mild spinal stenosis secondary to a central disc protrusion which produces partial effacement of the CSF spaces ventral and dorsal to the cord, without cord compression. The neural foramina are patent. C7-T1: Patent. IMPRESSION: 1. No neck masses identified. Please correlate clinically. 2. Degenerative changes with mild spinal stenosis at C5-6 and C6-7. Report Dictated on Electronically Signed By: Jace Ricks MD Electronically Signed Date/Time: 06/20/2024 8:44 AM EST [facility] MR Cervical spine WO contras tOrdered By: Jace Ricks on 06-20-2024 [facility] Work Phone: MR Cervical spine WO contras ton 06-15-2024 Radiology Study observation (narrative) [facility] alth 1,25-dihydroxyvitamin D3 [Ma ss/Vol]on 04-13-2023 VIT D1,25 DIHYDROXY 28.0 pg/mL Normal 19.9-79.3 [facility] Comment on above: Order Comment: Speci men Type: BLOOD SPECIMEN Ordering Facility: [facility] Address: [address] [place] [address] Performed By: #### 1 649-3 #### [facility] CLIA [id number] [address] [place] [address] [place] Basic metabolic 2000 panelon 04-13-2023 Anion gap [Moles/Vol] 9 mmol/L Normal -18 [facility] Comment on above: Order Comment: Speci men Type: BLOOD SPECIMEN Ordering Facility: [facility] Address: [address] [place], [place] [id number] Performed By: #### 2 4321-2, 63532-5, 3016-3 #### [facility] CLIA [id number] [address] [place] [address] [place] Calcium [Mass/Vol] 9.4 mg/dL Normal 8.5-10.2 [facility] Comment on above: Order Comment: Speci men Type: BLOOD SPECIMEN Ordering Facility: [facility] Address: [address] [facility], [place] [address] Performed By: #### 2 4321-2, 65034-5, 3016-3 #### [facility] CLIA [id number] [address] [place] [address] [place] Chloride [Moles/Vol] 106 mmol/L High 97-105 [facility] Comment on above: Order Comment: Speci men Type: BLOOD SPECIMEN Ordering Facility: [facility] Address: [address] [place] [address] Performed By: #### 2 4321-2, 61279-0, 6-3 #### [facility] CLIA [id number] [address] [place] [address] [place] CO2 [Moles/Vol] 24 mmol/L Normal 22-30 [facility] Comment on above: Order Comment: Speci men Type: BLOOD SPECIMEN Ordering Facility: [facility] Address: [address] [place] [address] Performed By: #### 2 4321-2, 17236-5, 6-3 #### [facility] CLIA [id number] [address] [place] [address] [place] Creatinine [Mass/Vol] 0.82 mg/dL Normal 0.58-0.96 [facility] Comment on above: Order Comment: Speci men Type: BLOOD SPECIMEN Ordering Facility: [facility] Address: [address] [place] [address] Performed By: #### 2 4321-2, 50101-5, 6-3 #### [facility] CLIA [id number] [address] Creatinine and Glomerular filtration rate.predicted panel (S/P/Bld) 95 mL/min/1.73m??? Normal >=60 [facility] Comment on above: Order Comment: Speci men Type: BLOOD SPECIMEN Ordering Facility: [facility] Address: [address] [place] [address] Result Comment: Allie mated Glomerular Filtration Rate (eGFR) is calculated using the 2020 CKD-EPI creatinine equation. This equation utilizes serum creatinine, sex, and age as parameters. The creatinine assay has traceable calibration to isotope dilution-mass spectrometry. Refer to KDIGO guidelines for clinical interpretation. In patients with unstable renal function, e.g. those with acute kidney injury, the eGFR may not accurately reflect actual GFR. Performed By: #### 2 4321-2, 43504-7, 6-3 #### [facility] CLIA [id number] [address] [place] [address] [place] Glucose [Mass/Vol] 101 mg/dL High 74-99 [facility] Comment on above: Order Comment: Theodora dee Type: BLOOD SPECIMEN Ordering Facility: [facility] Address: [address] [place] [address] Result Comment: The [place] Diabetes Association (ADA) provides guidance for cutoff values for fasting glucose and random glucose. The ADA defines fasting as no caloric intake for at least 8 hours. Fasting plasma glucose results between 100 to 125 mg/dL indicate increased risk for diabetes (prediabetes). Fasting plasma glucose results greater than or equal to 126 mg/dL meet the criteria for diagnosis of diabetes. In the absence of unequivocal hyperglycemia, results should be confirmed by repeat testing. In a patient with classic symptoms of hyperglycemia or hyperglycemic crisis, random plasma glucose results greater than or equal to 200 mg/dL meet the criteria for diagnosis of diabetes. Reference: Standards of Medical Care in Diabetes 2016, [place] Diabetes Association. Diabetes Care. 2016.39(Suppl 1). Performed By: #### 2 4321-2, 27153-8, 3015-3 #### [facility] CLIA [id number] [address] [place] [address] [place] Potassium [Moles/Vol] 4.6 mmol/L Normal 3.7-5.1 [facility] Comment on above: Order Comment: Theodora dee Type: BLOOD SPECIMEN Ordering Facility: [facility] Address: [address] [place], [place] [id number] Performed By: #### 2 4321-2, 12938-1, 3015-3 #### [facility] CLIA [id number] [address] [place] [address] [place] Sodium [Moles/Vol] 139 mmol/L Normal 136-144 [facility] Comment on above: Order Comment: Speci men Type: BLOOD SPECIMEN Ordering Facility: [facility] Address: [address] [facility] [address], [place] [address] Performed By: #### 2 4321-2, 09473-6, 6-3 #### [facility] CLIA [id number] [address] Urea nitrogen [Mass/Vol] 16 mg/dL Normal 01-11 [facility] Comment on above: Order Comment: Speci men Type: BLOOD SPECIMEN Ordering Facility: [facility] Address: [address] [place] [address] Performed By: #### 2 4321-2, 37336-9, 3015-3 #### [facility] CLIA [id number] [address] CBC W Auto Differential pane l (Bld)on 04-13-2023 Basophils (Bld) [#/Vol] 0.04 10*3/uL Normal <0.11 [facility] Comment on above: Order Comment: Speci men Type: BLOOD SPECIMEN Ordering Facility: [facility] Address: [address] [place] [address] Performed By: #### 5 7021-8 #### [facility] CLIA [id number] [address] Basophils/100 WBC (Bld) 0.6 % Normal [facility] Comment on above: Order Comment: Speci men Type: BLOOD SPECIMEN Ordering Facility: [facility] Address: [address] [place] [address] Performed By: #### 5 7021-8 #### [facility] CLIA [id number] [address] Differential cell count method Nom (Bld) Auto Normal [facility] Comment on above: Order Comment: Speci men Type: BLOOD SPECIMEN Ordering Facility: [facility] Address: [address] [place] [address] Performed By: #### 5 7021-8 #### [facility] CLIA [id number] [address] Eosinophils (Bld) [#/Vol] 0.12 10*3/uL Normal <0.46 [facility] Comment on above: Order Comment: Speci men Type: BLOOD SPECIMEN Ordering Facility: [facility] Address: [address] [place] [address] Performed By: #### 5 7021-8 #### [facility] CLIA [id number] [address] Eosinophils/100 WBC (Bld) 1.7 % Normal [facility] Comment on above: Order Comment: Speci men Type: BLOOD SPECIMEN Ordering Facility: [facility] Address: [address] [place] [address] Performed By: #### 5 7021-8 #### [facility] CLIA [id number] [address] Erythrocyte distribution width (RBC) [Ratio] 13.2 % Normal 11.5-15.0 [facility] Comment on above: Order Comment: Speci men Type: BLOOD SPECIMEN Ordering Facility: [facility] Address: [address] [place] [address] Performed By: #### 5 7021-8 #### [facility] CLIA [id number] [address] Hematocrit (Bld) [Volume fraction] 41.2 % Normal 36.0-46.0 [facility] Comment on above: Order Comment: Speci men Type: BLOOD SPECIMEN Ordering Facility: [facility] Address: [address] [place] [address] Performed By: #### 5 7021-8 #### [facility] CLIA [id number] [address] [place] Hemoglobin (Bld) [Mass/Vol] 13.9 g/dL Normal 11.5-15.5 [facility] Comment on above: Order Comment: Speci men Type: BLOOD SPECIMEN Ordering Facility: [facility] Address: [address] [place] [address] Performed By: #### 5 7021-8 #### [facility] CLIA [id number] [address] [place] Immature granulocytes (Bld) [#/Vol] 10*3/uL Normal <0.10 [facility] Comment on above: Order Comment: Speci men Type: BLOOD SPECIMEN Ordering Facility: [facility] Address: [address] [place] [address] Performed By: #### 5 7021-8 #### [facility] CLIA [id number] [address] [place] [address] [place] Immature granulocytes/100 WBC (Bld) 0.1 % Normal [facility] Comment on above: Order Comment: Speci men Type: BLOOD SPECIMEN Ordering Facility: [facility] Address: [address] [place] [address] Performed By: #### 5 7021-8 #### [facility] CLIA [id number] [address] [place] Lymphocytes (Bld) [#/Vol] 1.96 10*3/uL Normal 1.00-4.00 [facility] Comment on above: Order Comment: Speci men Type: BLOOD SPECIMEN Ordering Facility: [facility] Address: [address] [place] [address] Performed By: #### 5 7021-8 #### [facility] CLIA [id number] [address] Lymphocytes/100 WBC (Bld) 27.3 % Normal [facility] Comment on above: Order Comment: Speci men Type: BLOOD SPECIMEN Ordering Facility: [facility] Address: [address] [place] [address] Performed By: #### 5 7021-8 #### [facility] CLIA [id number] [address] [place] [address] [place] MCH (RBC) [Entitic mass] 28.6 pg Normal 26.0-34.0 [facility] Comment on above: Order Comment: Speci men Type: BLOOD SPECIMEN Ordering Facility: [facility] Address: [address] [place] [address] Performed By: #### 5 7021-8 #### [facility] CLIA [id number] [address] [place] [address] [place] MCHC (RBC) [Mass/Vol] 33.7 g/dL Normal 30.5-36.0 [facility] Comment on above: Order Comment: Speci men Type: BLOOD SPECIMEN Ordering Facility: [facility] Address: [address] [place] [address] Performed By: #### 5 7021-8 #### [facility] CLIA [id number] [address] [place] [address] [place] MCV (RBC) [Entitic vol] 84.8 fL Normal 80.0-100.0 [facility] Comment on above: Order Comment: Speci men Type: BLOOD SPECIMEN Ordering Facility: [facility] Address: [address] [place] [address] Performed By: #### 5 7021-8 #### [facility] CLIA [id number] [address] [place] [address] [place] Monocytes (Bld) [#/Vol] 0.73 10*3/uL Normal <0.87 [facility] Comment on above: Order Comment: Speci men Type: BLOOD SPECIMEN Ordering Facility: [facility] Address: [address] [place] [address] Performed By: #### 5 7021-8 #### [facility] CLIA [id number] [address] Monocytes/100 WBC (Bld) 10.2 % Normal [facility] Comment on above: Order Comment: Speci men Type: BLOOD SPECIMEN Ordering Facility: [facility] Address: [address] [place] [address] Performed By: #### 5 7021-8 #### [facility] CLIA [id number] [address] [place] [address] [place] Neutrophils (Bld) [#/Vol] 4.32 10*3/uL Normal 1.45-7.50 [facility] Comment on above: Order Comment: Speci men Type: BLOOD SPECIMEN Ordering Facility: [facility] Address: [address] [place] [address] Performed By: #### 5 7021-8 #### [facility] CLIA [id number] [address] [place] Neutrophils/100 WBC (Bld) 60.1 % Normal [facility] Comment on above: Order Comment: Speci men Type: BLOOD SPECIMEN Ordering Facility: [facility] Address: [address] [place] [address] Performed By: #### 5 7021-8 #### [facility] CLIA [id number] 1000 [place] [address] [place] Nucleated RBC (Bld) [#/Vol] 10*3/uL Normal <0.01 [facility] Comment on above: Order Comment: Speci men Type: BLOOD SPECIMEN Ordering Facility: [facility] Address: [address] [place] [address] Performed By: #### 5 7021-8 #### [facility] CLIA [id number] [address] [place] Nucleated RBC/100 WBC (Bld) [Ratio] 0.0 /100 WBC Normal [facility] Comment on above: Order Comment: Speci men Type: BLOOD SPECIMEN Ordering Facility: [facility] Address: [address] [place] [address] Performed By: #### 5 7021-8 #### [facility] CLIA [id number] [address] [place] Platelet mean volume (Bld) [Entitic vol] 9.7 fL Normal 9.0-12.7 [facility] Comment on above: Order Comment: Speci men Type: BLOOD SPECIMEN Ordering Facility: [facility] Address: [address] [place] [address] Performed By: #### 5 7021-8 #### [facility] CLIA [id number] [address] [place] Platelets (Bld) [#/Vol] 326 10*3/uL Normal 150-400 [facility] Comment on above: Order Comment: Speci men Type: BLOOD SPECIMEN Ordering Facility: [facility] Address: [address] [place], [place] [id number] Performed By: #### 5 7021-8 #### [facility] CLIA [id number] [address] [place] [address] [place] RBC (Bld) [#/Vol] 4.86 10*6/uL Normal 3.90-5.20 [facility] Comment on above: Order Comment: Rosaurai men Type: BLOOD SPECIMEN Ordering Facility: [facility] Address: [address] [place] [address] Performed By: #### 5 7021-8 #### [facility] CLIA [id number] [address] [place] [address] [place] WBC (Bld) [#/Vol] 7.18 10*3/uL Normal 3.70-11.00 [facility] Comment on above: Order Comment: Theodora dee Type: BLOOD SPECIMEN Ordering Facility: [facility] Address: [address] [place] [address] Performed By: #### 5 7021-8 #### [facility] CLIA [id number] [address] [place] HbA1c (Bld)on 04-13-2023 Average glucose Estimated from glycated hemoglobin (Bld) [Mass/Vol] 100 mg/dL Normal [facility] Comment on above: Order Comment: Theodora men Type: BLOOD SPECIMEN Ordering Facility: [facility] Address: [address] [place] [address] Result Comment: eAG: (Estimated average glucose) is a calculated value from HgbA1c and is major account representative of the average blood glucose level in the last 2-3 month period. Performed By: #### 5 5454-3 #### [facility] CLIA [id number] [address] [place] [id number] [place] [address] [place] HbA1c (Bld) [Mass fraction] 5.1 % Normal 4.3-5.6 [facility] Comment on above: Order Comment: Theodora [facility] Type: BLOOD SPECIMEN Ordering Facility: [facility] Address: [address] [place] [address] Result Comment: Amer ican Diabetes Association guidelines indicate that patients with HgbA1c in the range 5.7-6.4% are at increased risk for development of diabetes, and intervention by lifestyle modification may be beneficial. HgbA1c greater or equal to 6.5% is considered diagnostic of diabetes. Performed By: #### 5 5454-3 #### [facility] CLIA [id number] [address] [place] [address] [place] Lipid 1996 panelon 3 Cholesterol [Mass/Vol] 199 mg/dL Normal <200 [facility] Comment on above: Order Comment: Theodora dee Type: BLOOD SPECIMEN Ordering Facility: [facility] Address: [address] [place] [address] Result Comment: <200 mg/dL, Desirable 200-239 mg/dL, Borderline high >239 mg/dL, High Performed By: #### 2 4321-2, 42779-2, 3016-3 #### [facility] CLIA [id number] [address] [place], [place] [address] [place] [address] [facility] Cholesterol in HDL [Mass/Vol] 53 mg/dL Normal >39 [facility] Comment on above: Order Comment: Theodora dee Type: BLOOD SPECIMEN Ordering Facility: [facility] Address: [address] [place] [address] Result Comment: 40-5 9 mg/dL, Acceptable >59 mg/dL, High: Negative risk factor for coronary heart disease <40 mg/dL, Low: Positive risk factor for coronary heart disease Performed By: #### 2 4321-2, 62462-7, 3016-3 #### [facility] CLIA [id number] [address] [place] [address] [facility] Cholesterol in LDL [Mass/Vol] 127 mg/dL High <100 [facility] Comment on above: Order Comment: Theodora [facility] Type: BLOOD SPECIMEN Ordering Facility: [facility] Address: [address] [place] [address] Result Comment: <100 mg/dL, Optimal 100-129 mg/dL, Near optimal/above optimal 130-159 mg/dL, Borderline high 160-189 mg/dL, High >189 mg/dL, Very high Secondary prevention optimal LDL Cholesterol levels are recommended to be < 70 mg/dL Performed By: #### 2 4321-2, 02629-3, 3016-3 #### [facility] CLIA [id number] [address] [facility] Cholesterol in LDL/Cholesterol in HDL [Mass ratio] 2.40 {ratio} Normal <2.54 [facility] Comment on above: Order Comment: Theodora dee Type: BLOOD SPECIMEN Ordering Facility: [facility] Address: [address] [place] [address] Result Comment: Refe rence: 1. National Cholesterol Education Program ATP III Guideline At-A-Glance Quick Desk Reference: National Heart, Lung, and Blood [place]. National Institutes of Health. 2001: NIH Publication No. 01-3305. 2. An International Atherosclerosis Society position paper: global recommendations for the management of dyslipidemia: executive summary, Atherosclerosis. 2014: 232(2):410-413. Performed By: #### 2 4321-2, 93283-9, 6-3 #### [facility] CLIA [id number] [address] Cholesterol in VLDL [Mass/Vol] 19 mg/dL Normal <30 [facility] Comment on above: Order Comment: Theodora dee Type: BLOOD SPECIMEN Ordering Facility: [facility] Address: [address] [place] [address] Performed By: #### 2 4321-2, 93201-4, 6-3 #### [facility] CLIA [id number] [address] [place] Cholesterol non HDL [Mass/Vol] 146 mg/dL High <130 [facility] Comment on above: Order Comment: Theodora luiz Type: BLOOD SPECIMEN Ordering Facility: [facility] Address: [address] [place] [address] Result Comment: <130 mg/dL, Optimal 130-159 mg/dL, Near optimal/above optimal 160-189 mg/dL, Borderline high 190-219 mg/dL, High >219 mg/dL, Very high Secondary prevention optimal non HDL Cholesterol levels are recommended to be <100 mg/dL Performed By: #### 2 4321-2, 46531-9, 6-3 #### [facility] CLIA [id number] [address] Cholesterol.total/Choles terol in HDL [Mass ratio] 3.75 {ratio} Normal <5.10 [facility] Comment on above: Order Comment: Theodora dee Type: BLOOD SPECIMEN Ordering Facility: [facility] Address: [address] [place] [address] Performed By: #### 2 4321-2, 35205-7, 6-3 #### [facility] CLIA [id number] [address] FASTING TIME 12 hrs Normal [facility] Comment on above: Order Comment: Theodora dee Type: BLOOD SPECIMEN Ordering Facility: [facility] Address: [address] [place] [address] Performed By: #### 2 4321-2, 49683-1, 6-3 #### [facility] CLIA [id number] [address] Triglyceride [Mass/Vol] 97 mg/dL Normal <150 [facility] Comment on above: Order Comment: Theodora dee Type: BLOOD SPECIMEN Ordering Facility: [facility] Address: [address] [place] [address] Result Comment: <150 mg/dL, Normal 150-199 mg/dL, Borderline high 200-499 mg/dL, High >499 mg/dL, Very high Performed By: #### 2 4321-2, 70839-5, 6-3 #### [facility] CLIA [id number] [address] [place] TSH SerPl-aCncon 04-13-2023 TSH Qn 1.610 m[IU]/L Normal 0.270-4.200 [facility] Comment on above: Order Comment: Theodora dee Type: BLOOD SPECIMEN Ordering Facility: [facility] Address: [address] [place] [address] Result Comment: If t he patient is , TSH reference range varies by gestational period: First Trimester (weeks 9-12): 0.180-2.990 mIU/L Second Trimester: 0.110-3.980 mIU/L Third Trimester: 0.480-4.710 mIU/L Christophe Phillips et al. A Practical Approach for the Verifications and Determination of Site- and Trimester-Specific Reference Intervals for Thyroid Function tests in . Thyroid, 2019:29:3:412-420. Markie E, et al. 2017 Guidelines of the [place] Thyroid Association for the Diagnosis and Management of Thyroid Disease during and the . Thyroid, 2017:27:3:315-389. Performed By: #### 2 4321-2, 92640-4, 3016-3 #### [facility] CLIA [id number] [address] [place] Vit B12 SerPl-ncon 023 Cobalamin (Vitamin B12) [Mass/Vol] 420 pg/mL Normal 232-1245 [facility] Comment on above: Order Comment: Speci men Type: BLOOD SPECIMEN Ordering Facility: [facility] Address: [address] [place] [address] Performed By: #### 2 132-9 #### [facility] CLIA [id number] [address] [place] [address] [place] HCG QUAL UR B/Oon 03-27-2023 status Negative neg - pos Yaquelin mccain [facility] Quality Check Yes [facility] Amb Office-Progress Notes-Pr ovideron 03-03-2019 Amb Office-Progress Notes-Provider Chief Complaint here for 6 week pp s/w pt she is not ready for IUD RUBIA, Dr. Ceron, female 01/22/19 second degree lac Last pap 09/2015 History of Present Illness Feeling great, not ready for IUD because she is concerned about mood. Bottle feeding-baby wasn't gaining when she tried to breast feed. She had a terrible birthing experience because she was in so much pain. Last pap was 10/07 Physical Exam Vitals & Measurements Systolic Blood Pressure: 114 mmHg (03/03/19 09:46:00) Diastolic Blood Pressure: 80 mmHg (03/03/19 09:46:00) Height/Length Measured: 170 cm (03/03/19 09:46:00) Weight Measured: 99.1 kg (03/03/19 09:46:00) Body Mass Index Measured: 34.29 kg/m2 (03/03/19 09:46:00) Depression Screening Scores No Depression Screening data available for this encounter. Fall Risk Assessment Is the patient ambulatory (mobile): Yes (03/03/19 09:46:00) Have you had a fall within the past: No (03/03/19 09:46:00) Have you had 2 or more falls in the past: No (03/03/19 09:46:00) Assessment/Plan state Z39.2 doing well. Will let us know when she is ready for contraception Problem List/Past Medical History Ongoing Anxiety History of abnormal cervical Papanicolaou smear History of depression Historical Procedure/Surgical History pap: 09/2015 Cervical cryo wisdom teeth Medications sertraline 100 mg oral tablet Allergies No Known Medication Allergies Social History Alcohol - Denies Alcohol Use Sexual Sexually active: Yes. Uses condoms: Yes. Substance Abuse - Denies Substance Abuse Tobacco Never (less than 100 in lifetime) Tobacco Use:. Family History Hearing loss.: Negative: Mother, Father, Sister, Brother, Grandfather, Grandmother and Other. Heart disease.: Father. Melanoma.: Grandmother. . Health Maintenance Pending (in the next year) Due Cervical Cancer Screening due 03/03/19 and every Influenza Vaccine due 03/03/19 and every MMR Vaccine Dose 1 due 03/03/19 One-time only Tetanus Vaccine due 03/03/19 and every 10 years Varicella Vaccine Dose 1 due 03/03/19 One-time only Satisfied (in the past 1 year) There are no satisfied recommendations within the defined date range Normal [facility] Phone Msgon 01-30-2019 Phone Msg - From: Zofia Grissom Sent: 01/30/2019 15:28:44 EDT Subject: CALLED PAIN Actions: Message she called because she was having pain when she stood up and, it would last for about 10 minutes. We told her to come in and give a urine sample to make sure that she does not have a bladder infection, she said she could not today because she was at her moms. She will next week Normal [facility] AUTO DIFFon 01-23-2019 Basophils (Bld) [#/Vol] 0.05 x1000 Normal 0.00-0.[address] [facility] Comment on above: Order Comment: first post day Performed By: #### 1 27983, [id number] ####[facility] [address] [place] [address] Medical Director: Prosper Santiago MD Basos % 0.4 % Normal [facility] Comment on above: Order Comment: first post day Performed By: #### 1 , [id number] ####[facility] [address] [place] [id number] Medical Director: Prosper Santiago MD Eos Count 0.15 x1000 Normal 0.00-0.50 [facility] Comment on above: Order Comment: first post day Performed By: #### 1 , [id number] ####[facility] [address] [place] [address] Medical Director: Prosper Santiago MD Eosinophils/100 WBC (Bld) 1.0 % Normal [facility] Comment on above: Order Comment: first post day Performed By: #### 1 , [id number] ####[facility] [address]mb[address]wa[address] [place] [address] Medical Director: Prosper Santiago MD Lymphocytes (Bld) [#/Vol] 2.80 x1000 Normal 1.20-4.80 [facility] Comment on above: Order Comment: first post day Performed By: #### 1 , [id number] ####[facility] Envfarho[address]654 [place] [address] Medical Director: Prosper Santiago MD Lymphocytes/100 WBC (Bld) 19.7 % Normal [facility] Comment on above: Order Comment: first post day Performed By: #### 1 , [id number] ####[facility] [address] [place] [address] Medical Director: Prosper Santiago MD Placer Count 0.88 x1000 Normal 0.10-1.00 [facility] Comment on above: Order Comment: first post day Performed By: #### 1 92059, [id number] ####[facility] [address] [place], [place] [id number]) [phone] Director: Prosper Santiago MD Monocytes/100 WBC (Bld) 6.2 % Normal [facility] Comment on above: Order Comment: first post day Performed By: #### 1 48504, [id number] ####[facility] [address] [place] [address] Medical Director: Prosper Santiago MD Neutrophils (Bld) [#/Vol] 10.31 x1000 High 1.40-8.80 [facility] Comment on above: Order Comment: first post day Performed By: #### 1 75562, [id number] ####[facility] [address]copnc[address]23[address] [place], [place] [id number]) [phone] Director: Prosper Santiago MD Neutrophils/100 WBC (Bld) 72.7 % Normal [facility] Comment on above: Order Comment: first post day Performed By: #### 1 28890, [id number] ####[facility] [address]btk[address] [place], [place] [id number]) [phone] Director: Prosper Santiago MD Anesthesiaon 01-23-2019 Anesthesia Patient: SHANNON THOMPSON Age: 33 years Sex: Female : 1985 Associated Diagnoses: None Author: ALVARADO ALVAREZ MD Assessment Postanesthesia assessment Vitals: Vital Signs 01/23/2019 7:54 EDT Temperature Oral 36.6 degC NORMAL Peripheral Pulse Rate 82 bpm NORMAL Respiratory Rate 18 br/min NORMAL Systolic Blood Pressure 106 mmHg NORMAL Diastolic Blood Pressure 67 mmHg NORMAL Mean Arterial Pressure, Cuff 80 mmHg SpO2 97 % NORMAL , stable hemodynamics, Normothermia. Mental status: at preoperative baseline. Respiratory support: normal oxygenation and ventilation. Pain: controlled. Nausea status: absence of nausea and vomiting. Postoperative hydration status: euvolemic. Normal [facility] HEMOon 01-23-2019 DIFF? No Normal [facility] Comment on above: Order Comment: first post day Performed By: #### 1 38277, [id number] #### [facility] [address] [place] [address] Laborer [place]: Prosper Santiago MD Erythrocyte distribution width (RBC) [Ratio] 15.2 % High 11.5-14.5 [facility] Comment on above: Order Comment: first post day Performed By: #### 1 63499, [id number] #### [facility] [address] [place], [place] [address] Laborer [place]: Prosper Santiago MD Hematocrit (Bld) [Volume fraction] 35.4 % Low 36.0-46.0 [facility] Comment on above: Order Comment: first post day Performed By: #### 1 74013, [id number] #### [facility] [address] [place], [place] [address] Laborer [place]: Prosper Santiago MD Hemoglobin (Bld) [Mass/Vol] 11.7 g/dL Low 12.0-16.0 [facility] Comment on above: Order Comment: first post day Performed By: #### 1 92665, [id number] #### [facility] [address] [place] [address] Laborer [place]: Prosper Santiago MD MCH (RBC) [Entitic mass] 28.5 pg Normal 27.0-34.0 [facility] Comment on above: Order Comment: first post day Performed By: #### 1 86762, [id number] #### [facility] [address] [place], [place] [address] Laborer [place]: Prosper Santiago MD MCHC (RBC) [Mass/Vol] 33.1 g/dL Normal 32.0-37.0 [facility] Comment on above: Order Comment: first post day Performed By: #### 1 81150, [id number] #### [facility] [address] [place], [place] [address] Laborer [place]: Prosper Santiago MD MCV (RBC) [Entitic vol] 86.2 fL Normal 80.0-100.[address] [facility] Comment on above: Order Comment: first post day Performed By: #### 1 , [id number] #### [facility] [address] [place] [address] Laborer [place]: Prosper Santiago MD Nucleated RBC (Bld) [#/Vol] 0 /100WBC Normal [facility] Comment on above: Order Comment: first post day Performed By: #### 1 , [id number] #### [facility] [address] [place], [place] [address] Laborer [place]: Prosper Santiago MD Platelet mean volume (Bld) [Entitic vol] 8.0 fL Normal 7.4-10.4 [facility] Comment on above: Order Comment: first post day Performed By: #### 1 , [id number] #### [facility] [address] [place], [place] [address] Laborer [place]: Prosper Santiago MD Platelets (Bld) [#/Vol] 288 x1000 Normal 150-[address] [facility] Comment on above: Order Comment: first post day Performed By: #### 1 03227, [id number] #### [facility] [address] [place] [address] Laborer [place]: Prosper Santiago MD RBC (Bld) [#/Vol] 4.11 x10 Low 4.20-5.40 [facility] Comment on above: Order Comment: first post day Result Comment: Note : RBC morphology is normal unless otherwise stated. Evaluation performed only if differential is requested. Performed By: #### 1 41790, [id number] #### [facility] [address] [place] [address] Laborer [place]: Prosper Santiago MD WBC (Bld) [#/Vol] 14.2 x10 High 4.5-11.0 [facility] Comment on above: Order Comment: first post day Performed By: #### 1 85176, [id number] #### [facility] [address] [place] [address] Laborer [place]: Prosper Santiago MD WBC (Bld) [#/Vol] 14.2 10*3/uL Normal [facility] Comment on above: Order Comment: first post day Performed By: #### 1 54512, [id number] #### [facility] [address] [place] [address] Laborer [place]: Prosper Santiago MD Consultationon Consultation Consult Time of Consult:0840 Consult: x Routine Rounds Mother's Request Nurse Request x Experience Mother First Time Mother Denies Needing LC Assistance Care per CCN Breasts: x Able to Hand Express Drops of Breast Milk x Soft Filling Full/Mild Engorgement Severely Engorged History of Breast Surgery Breast Surgery History: Recommendations: Nipples: Right Left Bilaterally x Intact x Everted at Rest Flat x Everted with Stimulation Inverted Cracked Pinched/Scabbed Bleeding Blister x Bruised / Reddened Scar / Piercing Other Comments: Recommendations: x Lanolin x Hydrogel Pads Plan B Contact Nipple Shield Latch Assist Infant: x Awake Sleepy Gaggy Mucousy Disinterested Fussy Interventions / Recommendations: Latch: x Good Latch (grasps breast, tongue down, lips flanged, rhythmic suckling, audible swallow) Fair Latch (repeated attempts, holds nipple in mouth, stimulated to suck, few audible swallows) Unsuccessful Latch (sleepy or disinterested) Placed in SELWYN Suck: Breast Comfort Level: x Normal No Pain Poor / Weak Nipples Slightly Tender Tongue Thrusting / Tongue Sucking x Mild / Moderate Discomfort Biting Severe Discomfort Disorganized Suck Training Unable to Extend Tongue Over Bottom Gumline Keeping Tongue at Roof of Mouth Interventions / Recommendations: Hold / Positioning: x No Assistance (Mother able to position and hold ) Minimal Assist ( Needs Help with Pillows, Positioning, Latch-on) Full Assist (Second Person Latches Baby on and Holds Infant at Breast) Teaching: Feeding Cues Waking Techniques/Kangaroo Care x Proper Positioning: Level to the Breast Hand Expression x Proper Latch/Suck Frequency/Duration of Feeding x Milk Production Diaper and Feeding Record Packet Cluster Feeding Late (<37 wks) and Formula Feeding (Mother's choice) Concerns: x Sore Nipples Engorgement Plugged Ducts Mastitis Mother / Infant Separation Mother?s Readiness to Learn Weaning Back to Work Home Pumping / Pump Rental Late Infant (< 37 Wks) Medications Plan B: Mother's Choice [employer] Breastpump - Pumping and Care Hand Expression and Breast Massage Milk Storage / Handling Finger Syringe Feeding Bottle with Artificial Nipple at Parents Request Bottle with Artificial Nipple Recommeded by Health Professional Flange Size-- Supplementation: Expressed Breast Milk: Formula: Finger Syringe Feeding Feeding Tube at Breast Bottle with Artificial Nipple Plan for Discharge: Recommended Resources: x TIGR Videos x Line x Mother Support Group x Outpatient Consult with LC x Patient verbalizes understanding of all teaching All Questions and Concerns Addressed at this Time x Significant Other at Bedside for Consult and Teaching x Encouraged Mother to Call for any Questions, Concerns, or Needed Assistance Patient not Receptive to Teaching at this Time Additional LC Note: noted infant latched to breast, noted a good latch-pt. stated it hurts when latching, assisted pt. with getting a deeper latch onto breast after that was done pt. stated it was better, instructed and showed pt. how to get a deeper latch, reviewed care of sore nipples-pt. fair skin, using lanolin and gel pads, instructed on deeper latch-better, little discomfort after adjusted, lanolin and gel pad use, reviewed use of line, support group and outpt. consult for use after discharge Normal [facility] [facility] Utilization Review Noteon Utilization Review Note MMO FOLLOWS KAMLA ACOSTA GUIDELINES FOR DELIVERIES Normal [facility] Anesthesiaon 01-22-2019 Anesthesia Patient: SHANNON THOMPSON Age: 33 years Sex: Female : 1985 Associated Diagnoses: None Author: ALVARADO ALVAREZ MD DIAGNOSIS: LABOR Preoperative Information Procedure/ Case: LABOR EPIDURAL NPO greater than 8 hours. Anesthesia history Patient's history: negative. Family's history: negative. Review of Systems ALL SYSTEMS REVIEWED: CV, PULM, GI, , NEURO, HEPATIC, HEME, ENDO, PSYCH, MS HISTORY/ROS: AT 39 WEEKS EGA DEPRESSION Health Status Allergies: Allergies (1) Active Reaction No Known Medication Allergies None Documented Current medications: Home Medications (3) Active [facility]ra[facility] [place] oral capsule Zoloft 100 mg oral tablet 100 mg = 1 tabs, ORAL, DAILY Zoloft 25 mg oral tablet 25 mg = 1 tabs, ORAL, DAILY LABORATORY DATA Chemistry BMP Plus Mag No qualifying data available. Hematology CBC brief [address] WBC: 14.1 x10 HGB: 12.5 g/dL (01/21/19) HCT: 38 % (01/21/19) Platelet: 304 x1000 (01/21/19) Coagulation PT INR [address] No qualifying data available. Test No qualifying data available. Histories Past Medical History: Past Medical History (1) Procedure history: pap in the month of 09/2015 at 30 Years. Cervical cryo. wisdom teeth. Social History Social & Psychosocial Habits Alcohol 11/05/2018 Risk Assessment: Denies Alcohol Use Substance Abuse 11/05/2018 Risk Assessment: Denies Substance Abuse Tobacco 11/26/2018 Use: Never (less than 100 in l . Physical Examination VITALS Vital Signs (last value in last 48 hours) Temperature Temporal Artery: 36.9 degC (01/22/19 00:00:00) Respiratory Rate: 18 br/min (01/22/19 00:04:00) Peripheral Pulse Rate: 93 bpm (01/21/19 14:52:00) Heart Rate Monitored: 78 bpm (01/22/19 00:04:00) Systolic Blood Pressure: 114 mmHg (01/22/19 00:04:00) Diastolic Blood Pressure: 67 mmHg (01/22/19 00:04:00)Height and Weight (last value in last 48 hours) Height/Length Dosin cm (01/21/19 15:00:00) Height/Length Measured: 170 cm (01/21/19 15:00:00) Weight Dosin.59 kg (01/21/19 15:00:00) Weight Measured: 106.59 kg (01/21/19 15:00:00) General: Alert and oriented. Airway: Mallampati classification: II (soft palate, fauces, uvula visible). Respiratory: Lungs are clear to auscultation. Cardiovascular: Normal rate, Regular rhythm, No murmur. Assessment and Plan [place] [employer] Anesthesiologists (ASA) physical status classification: Class II. Anesthetic Preoperative Plan Anesthetic technique: Neuraxial. Regional: Epidural. Special monitoring: Standard ASA monitors.. Risks discussed: nausea, vomiting, headache, hypotension, allergic reaction, serious complications, Questions answered. Risks and Benefits explained. Rationale and Alternatives discussed with patient/guardian/pare nt (s)/family.. Informed consent: signed by patient. Notes. [facility] Labor and Delivery Reporton 01-22-2019 Labor and Delivery Report Patient: SHANNON THOMPSON Age: 33 years Sex: Female : 1985 Associated Diagnoses: None Author: ALFONSO CHOU MD -Pt to complete, pushed x 5 minutes. Has epidural but states not working. over 2nd-degree laceration. Viable female, spontaneous cry, bulb suctioned of clear fluid. No nuchal cord. Apgars 9 @ one minute and 9 @ 5 minutes. Placenta delivered spontaneously intact with a 3VC, grossly normal. Uterus explored free of clots and debris. No cervical nor vaginal laceration. 2nd degree perineal laceration repaired w 2-0 vicryl. EBL < 500cc. Anes epidural. Pt and baby stable [facility] Consultationon Consultation Consult Time of Consult: 1115 Consult: x Routine Rounds Mother's Request Nurse Request x Experience Mother - previous very difficult time , daughter would not latch, milk supply was low. Worked with in [place] extensively. First Time Mother Denies Needing Assistance Infant Care per CCN Breasts: x Able to Hand Express Drops of Breast Milk x Soft Filling Full/Mild Engorgement Severely Engorged History of Breast Surgery Breast Surgery History: Recommendations: Nipples: Right Left Bilaterally x Intact Everted at Rest Flat x Everted with Stimulation Inverted Cracked Pinched/Scabbed Bleeding Blister x Reddened Scar / Piercing Other Comments: Recommendations: x Lanolin x Hydrogel Pads Plan B Contact Nipple Shield Latch Assist Infant: x Awake - once on the breast and latched well x Sleepy - waking techniques performed Gaggy Mucousy Disinterested Fussy Interventions / Recommendations: Latch: x Good Latch - repeated attempts to latch, cross cradle hold bilaterally for deep latch / sustained sucking / swallows noted. (grasps breast, tongue down, lips flanged, rhythmic suckling, audible swallow) Fair Latch (repeated attempts, holds nipple in mouth, stimulated to suck, few audible swallows) Unsuccessful Latch (sleepy or disinterested) Infant Placed in SELWYN Suck: Breast Comfort Level: x Normal No Pain Poor / Weak x Nipples Slightly Tender - pain eases up t/o feeding Tongue Thrusting / Tongue Sucking x Mild / Moderate Discomfort - initial latch x Biting - initially Severe Discomfort Disorganized x Suck Training Unable to Extend Tongue Over Bottom Gumline Keeping Tongue at Roof of Mouth Interventions / Recommendations: Hold / Positioning: No Assistance (Mother able to position and hold infant) x Minimal Assist ( Needs Help with Pillows, Positioning, Latch-on) Full Assist (Second Person Latches Baby on and Holds Infant at Breast) Teaching: x Feeding Cues x Waking Techniques/Kangaroo Care x Proper Positioning: Level to the Breast x Hand Expression - can express after feeds and offer additional ebm to baby, given medicine cup for collection. Can also put on nipples for healing. x Proper Latch/Suck - suck training prior to latch / deep latch on x Frequency/Duration of Feeding x Milk Production x Diaper and Feeding Record x Packet x Cluster Feeding Late Infant (<37 wks) and Formula Feeding (Mother's choice) Concerns: x Sore Nipples Engorgement Plugged Ducts Mastitis Mother / Infant Separation Mother?s Readiness to Learn Weaning Back to Work x Home Pumping / Pump Rental - has several pumps @ home Late (< 37 Wks) Medications Plan B: Mother's Choice [employer] Breastpump - Pumping and Care Hand Expression and Breast Massage Milk Storage / Handling Finger Syringe Feeding Bottle with Artificial Nipple at Parents Request Bottle with Artificial Nipple Recommeded by Health Professional Flange Size-- Supplementation: Expressed Breast Milk: Formula: Finger Syringe Feeding Feeding Tube at Breast Bottle with Artificial Nipple Plan for Discharge: Recommended Resources: x TIGR Videos x Line x Mother Support Group Outpatient Consult with LC x Patient verbalizes understanding of all teaching All Questions and Concerns Addressed at this Time x Significant Other at Bedside for Consult and Teaching x Encouraged Mother to Call for any Questions, Concerns, or Needed Assistance Patient not Receptive to Teaching at this Time Additional LC Note: Normal [facility] Nursing Clinical Noteon Nursing Clinical Note Oxytocin drip rate d were entered by Joey Mcneil RN, but performed by Yemi Mcdermott. Rates at times were confirmed through Iware by nitric acid concentrator operator nurse Joey Oliver and written down. After speaking with manager business process it was decided that I (MM) would enter the times, that had fallen off of iaware so they could not be acknowledged through Iware. They were manually entered based on the times written down. Normal [facility] AUTO DIFFon 01-21-2019 Basophils (Bld) [#/Vol] 0.07 x1000 [facility]00[facility]0.[facility] Comment on above: Performed By: #### 1 [id number], [id number] #### [facility] [address] [place], [place] [id number] Laborer Tanbark: Prosper Santiago MD Basos % 0.5 % Normal [facility] Comment on above: Performed By: #### 1 [id number], [id number] #### [facility] [address] [place] [address] Laborer [place]bark: Prosper Santiago MD Eos Count 0.08 x1000 Normal 0.00-0.50 [facility] Comment on above: Performed By: #### 1 [id number], [id number] #### [facility] [address] [place] [address] 68973 [phone] Laborer Tanbark: Prosper Santiago MD Eosinophils/100 WBC (Bld) 0.6 % Normal [facility] Comment on above: Performed By: #### 1 , [id number] #### [facility] [address] [place] [address] Laborer Tanbark: Prosper Santiago MD Lymphocytes (Bld) [#/Vol] 2.74 x1000 Normal 1.20-4.80 [facility] Comment on above: Performed By: #### 1 , [id number] #### [facility] [address] [place] [address] Laborer Tanbark: Prosper Santiago MD Lymphocytes/100 WBC (Bld) 19.4 % Normal [facility] Comment on above: Performed By: #### 1 , [id number] #### [facility] [address] [place] [address] Laborer Tanbark: Prosper Santiago MD Placer Count 0.77 x1000 Normal 0.10-1.00 [facility] Comment on above: Performed By: #### 1 , [id number] #### [facility] [address] [place] [address]25[address] Laborer [place]bark: Prosper Santiago MD Monocytes/100 WBC (Bld) 5.5 % Normal [facility] Comment on above: Performed By: #### 1 , [id number] #### [facility] [address] [place] [address] Laborer Tanbark: Prosper Santiago MD Neutrophils (Bld) [#/Vol] 10.41 x1000 High 1.40-8.80 [facility] Comment on above: Performed By: #### 1 , [id number] #### [facility] [address] [place] [address] Laborer Tanbark: Prosper Santiago MD Neutrophils/100 WBC (Bld) 74.0 % Normal [facility] Comment on above: Performed By: #### 1 , [id number] #### [facility] [address] [place] [address] Laborer Tanbark: Prosper Santiago MD HEMOon 01-21-2019 DIFF? No Normal [facility] Comment on above: Performed By: #### 1 , [id number] #### [facility] [address] [place], [place] [address] Laborer Tanbark: Prosper Santiago MD Erythrocyte distribution width (RBC) [Ratio] 15.4 % High 11.5-14.5 [facility] Comment on above: Performed By: #### 1 , [id number] #### [facility] [address] [place], [place] [address] Laborer Tanbark: Prosper Santiago MD Hematocrit (Bld) [Volume fraction] 38.0 % Normal 36.0-46.0 [facility] Comment on above: Performed By: #### 1 , [id number] #### [facility] [address] [place], [place] [address] Laborer Tanbark: Prosper Santiago MD Hemoglobin (Bld) [Mass/Vol] 12.5 g/dL Normal 12.0-16.0 [facility] Comment on above: Performed By: #### 1 , [id number] #### [facility] [address] [place], [place] [id number] Laborer Tanbark: Prosper Santiago MD MCH (RBC) [Entitic mass] 28.4 pg Normal 27.0-34.0 [facility] Comment on above: Performed By: #### 1 , [id number] #### [facility] [address] [place] [address] 135[address] Laborer Tanbark: Prosper Santiago MD MCHC (RBC) [Mass/Vol] 33.0 g/dL Normal 32.0-37.0 [facility] Comment on above: Performed By: #### 1 , [id number] #### [facility] [address] [place] [address] Laborer Tanbark: Prosper Santiago MD MCV (RBC) [Entitic vol] 86.0 fL Normal 80.0-100.[address] [facility] Comment on above: Performed By: #### 1 , [id number] #### [facility] [address] [place] [address] Laborer Tanbark: Prosper Santiago MD Nucleated RBC (Bld) [#/Vol] 0 /100WBC Normal [facility] Comment on above: Performed By: #### 1 , [id number] #### [facility] [address] [place] [address] Laborer Tanbark: Prosper Santiago MD Platelet mean volume (Bld) [Entitic vol] 8.2 fL Normal 7.4-10.4 [facility] Comment on above: Performed By: #### 1 , [id number] #### [facility] [address] [place] [address] Laborer Tanbark: Prosper Santiago MD Platelets (Bld) [#/Vol] 304 x1000 Normal 150-[address] [facility] Comment on above: Performed By: #### 1 , [id number] #### [facility] [address] [address] Laborer Tanbark: Prosper Santiago MD RBC (Bld) [#/Vol] 4.41 x10 Normal 4.20-5.40 [facility] Comment on above: Result Comment: Note : RBC morphology is normal unless otherwise stated. Evaluation performed only if differential is requested. Performed By: #### 1 , [id number] #### [facility] [address] [place] [address] Laborer Tanbark: Prosper Santiago MD WBC (Bld) [#/Vol] 14.1 10*3/uL Normal [facility] Comment on above: Performed By: #### 1 [id number], [id number] #### [facility] [address] [place], [place] [id number] Laborer Tanbark: Prosper Santiago MD WBC (Bld) [#/Vol] 14.1 x10 High 4.5-11.0 [facility] Comment on above: Performed By: #### 1 [id number], [id number] #### [facility] [address] [place], [place] [id number] Laborer Tanbark: Prosper Santiago MD History and Physicalon 01-21 History and Physical Patient: SHANNON THOMPSON Age: 33 years Sex: Female : 1985 Associated Diagnoses: 39 weeks gestation of ; History of depression Author: SERVANDO MANCUSO MD Basic Information Reason for admission: Scheduled induction, No labor. Gestational Age: * Note: EGA calculated as of 01/21/2019 ANGELINA: 01/27/2019 EGA*: 39 weeks 1 day Type: Authoritative Method Date: 04/22/2018 Method: Last Menstrual Period (04/22/2018) Confirmation: Confirmed Description: -- Comments: -- Entered by: Suzi Pedroza MA on 10/24/2018 Other ANGELINA Calculations for this : Entered Method Method Date ANGELINA EGA (At Entry) Type 10/24/2018 Ultrasound 09/25/2018 01/28/2019 22 weeks 1 days Non-Authoritative 10/24/2018 Ultrasound 07/14/2018 01/27/2019 11 weeks 6 days Non-Authoritative . Chief Complaint History of Present Illness The patient presents with Induction per attending. Patient is Para Information: : 2 Para Term: 1 Para : 0 Para Abortions: 0 Para Livin. The patient also complains of associated symptoms: no abdominal pain, no epigastric pain, no nausea, no vomiting, no decreased movement, no vaginal bleeding. Visit Assessments Pre- Weight Fundal term --------Cervix------- - -Measured- ------Urine------ Presenting Anetpartum Date Ht(cm) S&S Dil Eff(%) Sta kg lbs BP Prot Gluc Part FHR Activity Comment 01/19/19 3.0 cm 50 -2 106.8 235 114/72 Negative Negative 140 Present per patient Really uncomfortable. Baby moving. Mood is variable. Off zoloft. 01/13/19 3.0 cm 50 -2 105 231 120/70 Negative Negative 130 Present per patient Really uncomfortable. Would like to be induced. Only pushed 3 times for her first. 01/05/19 104.7 231 116/70 Negative Negative 138 Present per patient no contraction, + FM, planning induction 39 12/29/18 1.0 cm 20 -3 104.4 230 122/74 Negative Negative 130 Present per patient mood table, uncomfortable, LARC discussed plan Mirena post 6 weeeks 12/22/18 35 104.7 231 108/54 Negative Negative 135 Present per patient Doing well. Some cramping, really uncomfortable. Baby moves a ton. Plans to breast feeding but bottle fed the first. Dr. Diego Velasco. GBS culture next visit. 12/08/18 32 103 227 112/62 Trace 154 + FM, PNV, desires increase in zoloft increase to 50 for worsening anxiety, TDAP today, considering induction had questions 11/26/18 32 103.9 229 110/68 Negative Negative 128 Present per patient + FM, no cotractions, no bleeding, just moved, previous 6#12 at 40 weeks 11/07/18 30 103 227 102/68 Negative Negative Present per patient mood stable on the Zoloft 25, desires induction, previous baby 6#12, ok for massage 10/08/18 99 218 114/70 Next Visit: . * Note: EGA calculated as of 01/21/2019 ANGELINA: 01/27/2019 EGA*: 39 weeks 1 day Type: Authoritative Method Date: 04/22/2018 Method: Last Menstrual Period (04/22/2018) Confirmation: Confirmed Description: -- Comments: -- Entered by: Suzi Pedroza MA on 10/24/2018 Other ANGELINA Calculations for this : Entered Method Method Date ANGELINA EGA (At Entry) Type 10/24/2018 Ultrasound 09/25/2018 01/28/2019 22 weeks 1 days Non-Authoritative 10/24/2018 Ultrasound 07/14/2018 01/27/2019 11 weeks 6 days Non-Authoritative Review of Systems Constitutional: No fever, No chills, No sweats. Eye: Negative except as documented in history of present illness. Ear/Nose/Mouth/Throat : Negative except as documented in history of present illness. Respiratory: No shortness of breath, No cough, No sputum production, No hemoptysis. Cardiovascular: No chest pain. Breast: Negative. Gastrointestinal: Abdominal pain, No nausea, No vomiting, No diarrhea, No constipation, No heartburn. Genitourinary: No dysuria, No hematuria. Gynecologic: No genital lesion. Hematology/Lymphatics : Negative except as documented in history of present illness. Endocrine: Negative except as documented in history of present illness. Immunologic: Negative except as documented in history of present illness. Musculoskeletal: Negative except as documented in history of present illness. Integumentary: Negative except as documented in history of present illness. Neurologic: Alert and oriented X4. Psychiatric: No anxiety, No depression. ROS reviewed as documented in chart No Change: No change in system findings from previous examination. Health Status Allergies: Allergies (1) Active Reaction No Known Medication Allergies None Documented Current medications.Problem list. Histories No Data Available . History Outcome/ Wks/Days Delivery of Gest. Child's Length Date at Gender of Labor Wt. Preg.#1 06/24/2016 40wk Female 3062gms Outcome: Live Outcome or Result: Vaginal Delivery Hospital: [place] History No Data Available Outside Lab Results Chlamydia: Negative Gonorrhea: Negative Transcribed Blood Type: A positive Transcribed GBS Status: Unknown Transcribed Hep B Status: Negative SAg Transcribed HIV Status: Negative Transcribed RPR Status: Negative Transcribed Rubella Status: Immune Social History Social & Psychosocial Habits Alcohol 11/05/2018 Risk Assessment: Denies Alcohol Use Substance Abuse 11/05/2018 Risk Assessment: Denies Substance Abuse Tobacco 11/26/2018 Use: Never (less than 100 in l . Past Medical Surgical Social & asset availability leader histories reviewed and unchanged Physical Examination VS/Measurements Vital Signs (last 24 hrs) Last Charted Heart Rate Peripheral 93 bpm (JAN 21 14:52) Resp Rate 18 br/min (JAN 21 14:52) SBP 104 mmHg (JAN 21 14:52) DBP 66 mmHg (JAN 21 14:52) Weight 106.59 kg (JAN 21 15:00) Height 170 cm (JAN 21 15:00) BMI 36.88 (JAN 21 15:) , Weight Change Weight Measured: 106.59 kg Pre- Weight: 93 kg Cumulative Weight Gain: 13.8 kg General: Alert and oriented. Respiratory: Lungs are clear to auscultation. Cardiovascular: Normal rate, Regular rhythm. Gastrointestinal: Soft, Non-tender. Genitourinary: No lesions. Obstetric Exam Marshall/ Baby A evaluation: heart tones VTX by U/S, assessment of heart tracing reassuring heart rate. Cervix: cervical exam deferred. Musculoskeletal: Lower extremity exam: Nontender, No edema. Impression and Plan Diagnosis 39 weeks gestation of ([id number] Z3A.39, Working, Medical). History of depression (IPN18-MR Z86.59, Working, Medical). Course: D/W Pt induction risks and benefits and possible failure of induction . [facility] U DOAon 01-21-2019 Amphetamines, U Negative [facility] Comment on above: Result Comment: Urin e for Drugs of Abuse tests (U Amphetamines, U Barbituates, U PCP, U Benzodiazepines, U Cocaine, U THC, U Opiates & U Ecstasy)provide preliminary test results only. A more specific alternate method must be used in order to obtain a confirmed analytical result. Gas chromatography/mass spectrometry is the preferred confirmatory method. Clinical consideration and professional judgment should be applied to any drug of abuse test result, particularly when preliminary positive results are used. Urine for Drugs of Abuse [place] Levels: Barbiturate 200 ng/ml PCP 25 ng/ml Cocaine 300 ng/ml Opiates 2000 ng/ml Amphetamines 1000 ng/ml Benzodiazepines 200 ng/ml THC 50 ng/ml EXTC 500 ng/ml Performed By: #### 1 [id number] #### [facility] [address] [place] [address] Laborer Tanbark: Prosper Santiago MD Barbituates, U Negative [facility] Comment on above: Performed By: #### 1 [id number] #### [facility] [address] [place] [address] Laborer Tanbark: Prosper Santiago MD Benzodiazepines, U Negative Normal [facility] Comment on above: Performed By: #### 1 [id number] #### [facility] [address] [place] [address] Laborer [place]bark: Prosper Santiago MD Cocaine, U Negative [facility] Comment on above: Performed By: #### 1 [id number] #### [facility] [address] [place] [address] Laborer Tanbark: Prosper Santiago MD Ecstasy, U Negative [facility] Comment on above: Performed By: #### 1 [id number] #### [facility] [address] [place] [address] Laborer Tanbark: Prosper Santiago MD Opiates, U Negative [facility] Comment on above: Performed By: #### 1 [id number] #### [facility] [address] [place] [address]65 Laborer Tanbark: Prosper Santiago MD PCP, [facility] Comment on above: Performed By: #### 1 [id number] #### [facility] [address] [place] [address] Laborer [place]bark: Prosper Santiago MD THC, U Negative [facility] Comment on above: Performed By: #### 1 [id number] #### [facility] [address] [place] [address] Laborer Tanbark: Prosper Santiago MD GBS MOLECULAR TESTING SCREEN on 12-31-2018 GBS Molecular Testing Screen Negative [facility] Comment on above: Order Comment: Order ed on Fin# [id number] Result Comment: The purpose of this test is to detect colonization of Streptococcus Group B (GBS). This GBS assay is being performed using real time and reverse sole leather cutting machine operator Polymerase Chain Reaction (RTPCR ) and (PCR) assays. Performed By: #### 2 [id number] #### [facility] [address] [place] [id number] Laborer Tanbark: Prosper Santiago MD Vital Signs Date Time Vital Sign Value Performing Clinician Facility 12-22-2024 14:11040 Body height 170.2 cm Chelly Sales MD Work Phone: [facility] 12-22-2024 14:11040 Body mass index (BMI) [Ratio] 29.76 kg/m2 Chelly Sales MD Work Phone: [facility] 12-22-2024 14:11040 Body weight 86.18 kg Chelly Sales MD Work Phone: [facility] 12-22-2024 14:11040 Diastolic blood pressure 66 mm[Hg] Chelly Sales MD Work Phone: [facility] 12-22-2024 14:11-040 Systolic blood pressure 120 mm[Hg] Chelly Sales MD Work Phone: [facility] 09-09-2024 12:26-0400 Body mass index (BMI) [Ratio] 29.63 kg/m2 Felicita Wormald PA-C Work Phone: [facility] 09-09-2024 12:26-0400 Body temperature 97 [degF] Felicita Wormald PA-C Work Phone: [facility] 09-09-2024 12:26-0400 Body weight 85.8 kg Felicita Wormald PA-C Work Phone: [facility] 09-09-2024 12:26-0400 Diastolic blood pressure 84 mm[Hg] Felicita Wormald PA-C Work Phone: [facility] 09-09-2024 12:26-0400 Heart rate 61 /min Felicita Wormald PA-C Work Phone: [facility] 09-09-2024 12:26-0400 Respiratory rate 16 /min Felicita Wormald PA-C Work Phone: [facility] 09-09-2024 12:26-0400 SaO2% (BldA) [Mass fraction] 98 % Felicita Gomez PA-C Work Phone: [facility] 09-09-2024 12:26-0400 Systolic blood pressure 127 mm[Hg] Felicita RENTERIA-Rick Work Phone: [facility] 07-23-2024 10:38-0500 Body height 170.2 cm Sebatsian Cutler MD Work Phone: [facility] 07-23-2024 10:38-0500 Body mass index (BMI) [Ratio] 28.98 kg/m2 Sebastian Cutler MD Work Phone: [facility] 07-23-2024 10:38-0500 Body weight 83.92 kg Sebastian Cutler MD Work Phone: [facility] 08-08-2023 13:11-0500 Body weight 91.5 kg Anabela Vernon MD Work Phone: [facility] 08-08-2023 13:11-0500 Diastolic blood pressure 72 mm[Hg] Anabela Vernon MD Work Phone: [facility] 08-08-2023 13:11-0500 Respiratory rate 18 /min Anabela Vernon MD Work Phone: [facility] 08-08-2023 13:11-0500 Systolic blood pressure 128 mm[Hg] Anabela Vernon MD Work Phone: [facility] 03-27-2023 13:48-0400 Body weight 96.22 kg Madelyn Mendoza MD Work Phone: [facility] 03-27-2023 13:48-0400 Diastolic blood pressure 78 mm[Hg] Madelyn Mendoza MD Work Phone: [facility] 03-27-2023 13:48-0400 Respiratory rate 18 /min Madelyn Mendoza MD Work Phone: [facility] 03-27-2023 13:48-0400 Systolic blood pressure 120 mm[Hg] Madelyn Mendoza MD Work Phone: [facility] 10-30-2022 09:36-0400 Body temperature 97.52 [degF] Caridad Chele DO [facility] 10-30-2022 09:36-0400 Body weight 90.7 kg Caridad Chele DO [facility] 10-30-2022 09:36-0400 Diastolic blood pressure 78 mm[Hg] Caridad Chele DO [facility] 10-30-2022 09:36-0400 Heart rate 69 /min Caridad Chele DO [facility] 10-30-2022 09:36-0400 Respiratory rate 18 /min Caridad Chele DO [facility] 10-30-2022 09:36-0400 SaO2% (BldA) [Mass fraction] 98 % Caridad Chele DO [facility] 10-30-2022 09:36-0400 Systolic blood pressure 119 mm[Hg] Caridad Chele DO [facility] 09-21-2021 09:56-0400 Body weight 91.99 kg Madelyn Mendoza MD Work Phone: [facility] 09-21-2021 09:56-0400 Diastolic blood pressure 60 mm[Hg] Madelyn Mendoza MD Work Phone: [facility] 09-21-2021 09:56-0400 Systolic blood pressure 102 mm[Hg] Madelyn Mendoza MD Work Phone: [facility] Encounters Encounter Date Encounter Type Care Provider Facility Start: 12-29-2024 End: 02-28-2025 Follow-up encounter Marci Wilson MD Work Phone: OB/Gynecology Start: 12-22-2024 End: 12-22-2024 ambulatory CHELLY SALES Facility:[facility] Start: 12-22-2024 Encounter for gynecological examination (general) (routine) without abnormal findings CHELLY SALES [facility] Start: 12-22-2024 End: 12-22-2024 Patient encounter status Chelly Sales MD Work Phone: [facility] Start: 12-22-2024 End: 12-22-2024 Periodic preventive med est patient 18-39 yrs Chelly Sales MD Work Phone: OB/Gynecology Comment on above: Encounter for gyneco logical examination (general) (routine) without abnormal findings (Primary Dx); Screening for cervical cancer; Encounter for screening for human papillomavirus (HPV); Encounter for IUD removal Start: 12-09-2024 Encounter for genera l adult medical examination without abnormal findings Belem Alonso [facility] Start: 12-02-2024 End: 12-02-2024 ambulatory Belemchase Alonso CONTACT WORKER LITHOGRAPHY-C Work Phone: [facility] Work Phone: Start: 12-02-2024 End: 12-02-2024 Patient encounter procedure [facility] Belem Alonso NP-C -Laboratory Melissa Devries Start: 12-02-2024 End: 12-02-2024 ambulatory [facility] Facility:[facility] Start: 09-09-2024 End: 09-09-2024 ambulatory SELF Facility:[facility] Start: 09-09-2024 End: 09-09-2024 Patient encounter procedure Felicita Gomez PA-C Work Phone: [facility] Comment on above: Sinobronchitis (Prim julia Dx); Persistent cough; Sinus pressure; Ear pressure, bilateral Start: 07-23-2024 End: 07-23-2024 Office outpatient new 45 minutes Sebastian Cutler MD Work Phone: [facility] Comment on above: Cervical radiculopat hy (Primary Dx); Cervical pain (neck); Cervical spondylosis Start: 07-23-2024 End: 07-23-2024 ambulatory SEBASTIAN CUTLER [facility] Start: 06-26-2024 End: 06-26-2024 ambulatory JOHNNY EMORY [facility] Start: 06-26-2024 End: 06-26-2024 Subsequent hospital visit by physician Johnny Merlos MD Work Phone: [facility] Comment on above: Localized swelling, mass and lump, neck Start: 06-22-2024 End: 09-21-2024 Transcribe Orders Johnny Merlos MD Work Phone: [facility] Comment on above: Localized swelling, mass and lump, neck (Primary Dx) Start: 06-15-2024 End: 06-15-2024 Subsequent hospital visit by physician Johnny Merlos MD Work Phone: [facility] Comment on above: Localized swelling, mass and lump, neck Start: 06-15-2024 End: 06-15-2024 ambulatory JOHNNY EMORY [facility] Start: 05-29-2024 End: 08-28-2024 Transcribe Orders Johnny Merlos MD Work Phone: [facility] Comment on above: Localized swelling, mass and lump, neck (Primary Dx) Start: 08-08-2023 End: 08-08-2023 Patient encounter procedure Anabela Vernon MD Work Phone: Obstetrics/Gynecology Comment on above: Encounter for gyneco logical examination (general) (routine) without abnormal findings (Primary Dx) Start: 08-08-2023 End: 08-08-2023 Patient encounter status Anabela Vernon MD Work Phone: [facility] Work Phone: Start: 04-13-2023 End: 04-14-2023 ambulatory Facility:[facility] Start: 04-13-2023 Encounter for genera l adult medical examination without abnormal findings [facility] Start: 03-27-2023 End: 03-27-2023 Patient encounter procedure Madelyn Mendoza MD Work Phone: Obstetrics/Gynecology Comment on above: examinatio n or test, unconfirmed (Primary Dx); Encounter for IUD insertion Start: 10-30-2022 Caridad acuna [facility] Start: 09-21-2021 End: 09-21-2021 Patient encounter procedure Madelyn Mendoza MD Work Phone: Obstetrics/Gynecology Comment on above: Encounter for annual routine gynecological examination (Primary Dx); General counseling and advice for contraceptive management Start: 09-24-2018 Patient encounter procedure GABRIEL LOZANO [facility] Start: 09-10-2018 Patient encounter procedure TJ MARIANO [facility] Procedures Date Procedure Procedure Detail Performing Clinician Start: 12-02-2024 Vitamin D, 25-hydrox y measurement Belem Alonso CONTACT WORKER LITHOGRAPHY-C Work Phone: Comment on above: Vitamin D StatusDefi ciency: <20 ng/mL (50nmol/L)Insufficiency: 20-30 ng/mL (50-75 nmol/L)Sufficiency: 30-100 ng/mL (75-250 nmol/L)Toxicity: >100 ng/mL (>250 nmol/L) Start: 07-23-2024 Radex spine cervical 2 or 3 views Sebastian Cutler MD Work Phone: Start: 06-26-2024 Us soft tissue head & neck real time imge docm Johnny Merlos MD Work Phone: Start: 03-27-2023 Urine test visual color cmprsn meths Madelyn Mendoza MD Work Phone: Start: 09-21-2021 Microscopic observat ion [Identifier] in Cervix by Cyto stain Johnny Merlos MD Work Phone: Start: 10-07-2018 Follow-up visit Start: 06-25-2018 Follow-up visit Plan of Treatment Date Care Activity Detail Author Start: 2061 RSV Immunization for Adults (1 - 1-dose 75+ series) RSV Immunization for Adults (1 - 1-dose 75+ series) [facility] Start: 2036 Zoster Vaccines (1 o f 2) Zoster Vaccines (1 of 2) [facility] Start: 12-23-2027 Screening for malignant neoplasm of cervix Cervical Cancer Screening [facility] Start: 09-21-2026 HPV Testing HPV Testing [facility] Start: 09-21-2026 Pap Testing Pap Testing [facility] Start: 02-22-2025 Influenza vaccination Influenza Vacc ine (#1) [facility] Start: 12-17-2024 End: 12-17-2024 Patient encounter procedure 12/17/2024 1:30 PM EDT Office Visit Obstetrics/Gynecology [address] [address] Anabela Vernon MD [address] [place] [address] [facility] Comment on above: Na Start: 09-21-2024 Screening for malignant neoplasm of cervix [facility] Start: 07-09-2024 End: 07-09-2024 Patient encounter procedure 07/09/2024 9:15 AM EST Office Visit [address] [place] [address] Sebastian Cutler MD [address] [place] [address] [address] [place], [place] [id number] [facility] Start: 02-23-2024 COVID-19 Vaccine ( season) COVID-19 Vaccine ( season) [facility] Start: 02-23-2024 Influenza vaccination Influenza Vacc ine (#1) [facility] Start: 06-24-2023 Depression Assessment Depression Ass essment [facility] Start: 02-22-2023 Covid-19 Vaccine ( season) Covid-19 Vaccine ( season) [facility] Start: 02-22-2023 Influenza vaccination Influenza Vacc ine (#1) [facility] Start: 06-24-2022 Depression Assessment Depression Ass essment [facility] Start: 2016 HPV TESTING HPV TESTING [facility] Start: 2016 Screening for malignant neoplasm of cervix HPV/Cotest [facility] Start: 2013 HPV Vaccine (1 - 3-dose SCDM series) HPV Vaccine (1 - 3-dose SCDM series) [facility] Start: 2007 PAP TESTING PAP TESTING [facility] Start: 2005 Urine microalbumin profile [facility] Start: 2004 Anxiety Screening Anxiety Screening [facility] Start: 2004 Depression Screening Depression Scre ening [facility] Start: 2004 HEPATITIS C SCREENING HEPATITIS C [facility] Start: 2004 Hepatitis C screening Hepatitis C [facility] Start: 05-24-2004 DTaP/Tdap/Td Vaccine s (6 - Tdap) DTaP/Tdap/Td Vaccines (6 - Tdap) [facility] Start: 05-24-2004 Urine microalbumin profile DTaP,Tdap,Td Vaccine (6 - Tdap) [facility] Start: 1999 Varicella vaccination Varicell a Vaccines (1 of 2 - 13+ 2-dose series) [facility] Start: 1998 Adult depression screening assessment DEPRESSION SCREENING [facility] Start: 1986 Hepatitis B Vaccine (1 of 3 - 3-dose series) Hepatitis B Vaccine (1 of 3 - 3-dose series) [facility] Start: 1986 HIV screening HIV Screening [facility] alth Insertion intrauteri ne device iud INSERT INTRAUTERINE DEVICE Procedures Routine Encounter for IUD insertion Ordered: 03/27/[address] [facility] Work Phone: Comment on above: Ordered: 03/27/2023 End: 06-15-2024 MR Cervical spine WO contrast [facility] Work Phone: Comment on above: Once for 1 Occurrenc es starting 06/15/2024 until 06/15/2024 PAP FLUID CERVICAL SCREENING PAP FLUID CERVICAL SCREENING Lab Routine Encounter for annual routine gynecological examination 09/21/2021 11:07 AM EDT [facility] Work Phone: PAP TEST PAP TEST Lab Alexandre anne Encounter for gynecological examination (general) (routine) without abnormal findings Screening for cervical cancer Encounter for screening for human papillomavirus (HPV) Ordered: 12/22/[address] [facility] Work Phone: Comment on above: Ordered: 12/22/2024 Removal intrauterine device iud REMOVE INTRAUTERINE DEVICE Procedures Routine Encounter for IUD removal Ordered: 12/22/2024 [facility] Comment on above: Ordered: 12/22/2024 [facility] Immunizations Immunization Date Immunization Notes Care Provider Carli mckee 05-26-2022 Influenza, injectabl e, Madin Chloe Canine Kidney, preservative free, quadrivalent Chelly Sales MD Work Phone: [facility] 05-26-2022 influenza virus vacc ine, unspecified formulation Madelyn Mendoza MD Work Phone: [facility] 04-17-2021 influenza, injectabl e, quadrivalent, preservative free Chelly Sales MD Work Phone: [facility] 04-17-2021 Pfizer SARS-CoV-2 Vaccination Johnny Merlos MD Work Phone: [facility] 08-19-2020 Pfizer SARS-CoV-2 Vaccination Johnny Merlos MD Work Phone: [facility] 07-28-2020 Pfizer SARS-CoV-2 Vaccination Johnny Merlos MD Work Phone: [facility] 06-19-2018 influenza virus vacc ine, unspecified formulation Johnny Merlos MD Work Phone: [facility] 06-19-2018 influenza, injectabl e, quadrivalent, contains preservative Madelyn Mendoza MD Work Phone: [facility] 11-19-2006 tuberculin skin test ; purified protein derivative solution, intradermal Felicita Gomez PA-C Work Phone: [facility] 06-29-2005 meningococcal polysaccharide vaccine (MPSV4) Chelly Sales MD Work Phone: [facility] 01-25-2005 hepatitis B vaccine, pediatric or pediatric/adolescent dosage Chelly Sales MD Work Phone: [facility] 11-24-2004 hepatitis B vaccine, pediatric or pediatric/adolescent dosage Chelly Sales MD Work Phone: [facility] 05-23-2004 hepatitis B vaccine, pediatric or pediatric/adolescent dosage Chelly Sales MD Work Phone: [facility] 05-23-2004 TD(adult) unspecifie d formulation Chelly Sales MD Work Phone: [facility] 11-29-1998 measles, mumps and rubella virus vaccine Chelly Sales MD Work Phone: [facility] 09-22-1991 diphtheria, tetanus toxoids and acellular pertussis vaccine, unspecified formulation Chelly Sales MD Work Phone: [facility] 09-22-1991 trivalent poliovirus vaccine, live, oral Chelly Sales MD Work Phone: [facility] 06-03-1989 haemophilus influenz ae type b vaccine, conjugate unspecified formulation Chelly Sales MD Work Phone: [facility] 11-29-1987 diphtheria, tetanus toxoids and acellular pertussis vaccine, unspecified formulation Chelly Sales MD Work Phone: [facility] 11-29-1987 measles, mumps and rubella virus vaccine Chelly Sales MD Work Phone: [facility] 11-29-1987 trivalent poliovirus vaccine, live, oral Chelly Sales MD Work Phone: [facility] 01-11-1987 diphtheria, tetanus toxoids and pertussis vaccine Chelly Sales MD Work Phone: [facility] 1986 diphtheria, tetanus toxoids and pertussis vaccine Chelly Sales MD Work Phone: [facility] 1986 trivalent poliovirus vaccine, live, oral Chelly Sales MD Work Phone: [facility] 1986 diphtheria, tetanus toxoids and pertussis vaccine Chelly Sales MD Work Phone: [facility] 1986 trivalent poliovirus vaccine, live, oral Chelly Sales MD Work Phone: [facility] Payers Date Payer Category Payer Self-pay 2021 Commercial Managed C are - HMO MMO SUPERMED [id number] 2019 Private Health Insurance MMO SUP ERMED PPO [id number] 2019 Unknown MMO MMO SUPERMED PLUS [id number] 2019- [phone] [address] [place] [address] PPO [id number] 2019 Unknown [id number] 2019 Unknown [id number] 1986 Unknown [id number] 1986 Unknown [id number] Unknown COMMERCIAL OTHER [id number] Unknown [id number] Social History Date Type Detail Facility Start: 06-19-2018 End: 03-27-2023 Tobacco smoking status NHIS Never smoked tobacco [facility] Start: 06-19-2018 End: 03-27-2023 Tobacco use and exposure Smokeless tobacco non-user [facility] Start: 09-21-2021 End: 12-22-2024 Alcohol intake Current non-drinker of alcohol (finding) [facility] Start: 1985 Sex Assigned At Not on file [facility] Start: 08-28-2021 End: 09-07-2021 Exposure to SARS-CoV-2 (event) Not sure [facility] Start: 03-27-2023 End: 12-22-2024 History of Social function [facility] Start: 03-27-2023 End: 12-22-2024 Tobacco use panel [facility] Start: 05-25-2012 National Score (1-10 0), lower number is lower risk 33 [facility] Start: 09-13-2021 End: 06-15-2024 Alcoholic beverage intake Current drinker of alcohol (finding) [facility] Start: 01-22-2022 Sex Female (finding) [facility] Work Phone: Start: 1985 Sex Assigned At Female W [facility] Clinical Notes 06-19-2018 to 12-29-2024 Result Encounter Note - Marci Wilson MD - 12/29/2024 4:53 PM EDTResult Encounter Note - Marci Wilson MD - 12/29/2024 4:53 PM Chelly Mohr MD - 12/22/2024 2:06 PM EDT Note Date & Type Note Facility 12-29-2024 Progress note Formatting of t his note might be different from the original. Send letter about normal pap if she does not have mychart. Marci Wilson MD [facility] Work Phone: 12-29-2024 Miscellaneous Notes Send letter about normal pap if she does not have mychart. Marci Wilson MD documented in this encounter [facility] 12-22-2024 Note HNO ID: [id number] Author: CHELLY SALES MD Service: ? Author Type: Physician Type: Progress Notes Filed: 12/22/2024 17:09 Note Text: Redevelopment Manager offered: Patient declines. CJ is a 39 year old who presents for an annual gynecologic exam with complaints, irregular bleeding. Has a Mirena but had had bleeding since it was placed. has appointmetn for vasectomy. Plans to have the IUD removed once her is cleared. Still get period: Yes Menses: breakthough bleeding constantly Menstrual flow: Light Bleeding amount bothersome: Yes Bleeding between periods: Yes Period symptoms: None Sexually active: Yes Contraception: IUD Contraception frequency: Always HPV vaccine: No HPV:negative Last pap smear: 2021 History of abnormal pap: Yes Colposcopy: Yes: as a teen Leep: No. Cone biopsy: No. Bothersome pelvic pain: No Last mammogram: never OB History Gravida2 Para2 Term2 Preterm0 AB0 Living2 SAB0 IAB0 Ectopic0 Multiple0 Live Births2 Stud Setter History LMP: 07/20/2023 (Approximate), Having periods Age at Menarche: 14 Age at First : 30 Age at Menopause: Stud Setter History Comments: Sexual Activity: Yes; Male Contraception: I.U.D. PAST MEDICAL HISTORY Diagnosis Date History of depression treated successfully with Zoloft PAST SURGICAL HISTORY Procedure Laterality Date CRYOCAUTERY OF CERVIX ??CIN1 age ~16-17-> all normal after that TOOTH EXTRACTION FAMILY HISTORY Problem Relation Age of Onset Heart Attack Father age 40 Breast Cancer No Family History Cervical Cancer No Family History Ovarian cancer No Family History Uterine Cancer No Family History Colon Cancer No Family History Pancreatic Cancer No Family History Prostate Cancer No Family History SOCIAL HISTORY Social History Tobacco Use Smoking status: Never Smokeless tobacco: Never Vaping Use Vaping status: Never Used Substance Use Topics Alcohol use: No Drug use: No REVIEW OF SYSTEMS Abdomen: No abdominal pain, nausea, vomiting, diarrhea, or constipation. No bloating, early satiety, indigestion, or increased flatulence. Bladder: No dysuria, gross hematuria, urinary frequency, urinary urgency, or incontinence. Breast: No breast lumps, nipple d/c, overlying skin changes, redness or skin retraction. Allergies and current medication updated:Yes SENSITIVE EXAM: The sensitive examination was discussed with the Patient or Patient's Authorized Bartender Manager. As applicable, any other physician, advance practice provider, medical student, or other health professional student that will be observing or involved in the sensitive examination for educational or training purposes was discussed with the Patient or Authorized Bartender Manager. The Patient or Authorized Bartender Manager has agreed to proceed with the sensitive examination. (Sensitive examination includes inspection and/or palpation of the breasts, pelvis, prostate and anorectal regions). EXAM: LMP 07/20/2023 GENERAL: pleasant, female in no apparent distress HEENT: Normocephalic, atraumatic, mucus membranes moist, and no lesions NECK: Supple, full range of motion, no adenopathy, and thyroid normal DERMATOLOGY: Normal, without lesions, non-icteric, and non-hirsute BREAST: soft, non-tender, symmetric, no dominant mass, normal nipple-areolar complex, no lymphadenopathy, and no nipple discharge CHEST: Normal inspiratory effort ABDOMEN: soft, non-tender, and no masses PELVIC: external genitalia normal, normal Bartholin's glands, urethra, [place]'s glands, no vulvar lesions, no cervical lesions, good vaginal support, physiologic discharge present, normal appearing perineal body and perianal region, IUD strings visible BIMANUAL: uterus normal size, shape and consistency, no adnexal masses, and non-tender RECTOVAGINAL: deferred. NEURO: alert and oriented x3,exam grossly non-focal EXTREMITIES: normal ASSESSMENT/PLAN: 1) Health maintenance: Pap done with HPV. 2) Contraception: IUD. Contraceptive options reviewed and information provided. 3) STD screening: Declined STD check. 4) Follow up after vasectomy complete Chelly Sales MD [facility] 12-22-2024 History of Presen t illness Narrative Redevelopment Manager offered: Patient declines. RAAD is a 39 year old who presents for an annual gynecologic exam with complaints, irregular bleeding. Has a Mirena but had had bleeding since it was placed. has appointmetn for vasectomy. Plans to have the IUD removed once her is cleared. Still get period: Yes Menses: breakthough bleeding constantly Menstrual flow: Light Bleeding amount bothersome: Yes Bleeding between periods: Yes Period symptoms: None Sexually active: Yes Contraception: IUD Contraception frequency: Always HPV vaccine: No HPV:negative Last pap smear: 2021 History of abnormal pap: Yes Colposcopy: Yes: as a teen Leep: No. Cone biopsy: No. Bothersome pelvic pain: No Last mammogram: never OB History Gravida2 Para2 Term2 Preterm0 AB0 Living2 SAB0 IAB0 Ectopic0 Multiple0 Live Births2 Stud Setter History LMP: 07/20/2023 (Approximate), Having periods Age at Menarche: 14 Age at First : 30 Age at Menopause: Stud Setter History Comments: Sexual Activity: Yes; Male Contraception: I.U.D. PAST MEDICAL HISTORY Diagnosis Date History of depression treated successfully with Zoloft PAST SURGICAL HISTORY Procedure Laterality Date CRYOCAUTERY OF CERVIX ??CIN1 age ~16-17-> all normal after that TOOTH EXTRACTION FAMILY HISTORY Problem Relation Age of Onset Heart Attack Father age 40 Breast Cancer No Family History Cervical Cancer No Family History Ovarian cancer No Family History Uterine Cancer No Family History Colon Cancer No Family History Pancreatic Cancer No Family History Prostate Cancer No Family History SOCIAL HISTORY Social History Tobacco Use Smoking status: Never Smokeless tobacco: Never Vaping Use Vaping status: Never Used Substance Use Topics Alcohol use: No Drug use: No REVIEW OF SYSTEMS Abdomen: No abdominal pain, nausea, vomiting, diarrhea, or constipation. No bloating, early satiety, indigestion, or increased flatulence. Bladder: No dysuria, gross hematuria, urinary frequency, urinary urgency, or incontinence. Breast: No breast lumps, nipple d/c, overlying skin changes, redness or skin retraction. Allergies and current medication updated:Yes SENSITIVE EXAM: The sensitive examination was discussed with the Patient or Patient's Authorized Bartender Manager. As applicable, any other physician, advance practice provider, medical student, or other health professional student that will be observing or involved in the sensitive examination for educational or training purposes was discussed with the Patient or Authorized Bartender Manager. The Patient or Authorized Bartender Manager has agreed to proceed with the sensitive examination. (Sensitive examination includes inspection and/or palpation of the breasts, pelvis, prostate and anorectal regions). EXAM: LMP 07/20/2023 GENERAL: pleasant, female in no apparent distress HEENT: Normocephalic, atraumatic, mucus membranes moist, and no lesions NECK: Supple, full range of motion, no adenopathy, and thyroid normal DERMATOLOGY: Normal, without lesions, non-icteric, and non-hirsute BREAST: soft, non-tender, symmetric, no dominant mass, normal nipple-areolar complex, no lymphadenopathy, and no nipple discharge CHEST: Normal inspiratory effort ABDOMEN: soft, non-tender, and no masses PELVIC: external genitalia normal, normal Bartholin's glands, urethra, [place]'s glands, no vulvar lesions, no cervical lesions, good vaginal support, physiologic discharge present, normal appearing perineal body and perianal region, IUD strings visible BIMANUAL: uterus normal size, shape and consistency, no adnexal masses, and non-tender RECTOVAGINAL: deferred. NEURO: alert and oriented x3,exam grossly non-focal EXTREMITIES: normal ASSESSMENT/PLAN: 1) Health maintenance: Pap done with HPV. 2) Contraception: IUD. Contraceptive options reviewed and information provided. 3) STD screening: Declined STD check. 4) Follow up after vasectomy complete Chelly Sales MD documented in this encounter [facility] 09-09-2024 Instructions Felicita Gomez PA-C - 09/09/2024 12:37 PM EDT [facility] PATIENT INFO ACUTE SINUSITIS OVERVIEW Rhinosinusitis, or more commonly sinusitis, is the medical term for inflammation (swelling) of the lining of the sinuses and nose. The sinuses are the hollow areas within the facial bones that are connected to the nasal openings. The sinuses are lined with mucous membranes, similar to the inside of the nose. There are two main types of sinusitis: acute and chronic. Acute sinusitis is inflammation that lasts for less than four weeks while chronic sinusitis lasts for more than 12 weeks. Acute sinusitis is common, affecting approximately one million people per year in the [place]. ACUTE SINUSITIS CAUSES The most common cause of acute sinusitis is a viral infection associated with the common cold. Bacterial sinusitis occurs much less commonly, in only 0.5 to 2 percent of cases, usually as a complication of viral sinusitis. Because antibiotics are effective only against bacterial, and not viral, infections, most people do not need antibiotics for acute sinusitis. ACUTE SINUSITIS SYMPTOMS Symptoms of acute sinusitis include: Nasal congestion or blockage Thick, yellow to green discharge from the nose Pain in the teeth Pain or pressure in the face that is worse when bending forwards Other acute sinusitis symptoms can include fever (temperature greater than 100.4 F or 38 C), fatigue, cough, difficulty or inability to smell, ear pressure or fullness, headache, and bad breath. In most cases, these symptoms develop over the course of one day and begin to improve within seven to 10 days. DO I NEED TO BE EXAMINED? It is difficult to know if you have a viral or bacterial sinus infection initially. However, most people with a viral infection improve without treatment within seven to 10 days after symptoms begin. Bacterial sinusitis also sometimes improves without treatment, although it can also worsen and require treatment. If one or more of the following bothersome symptoms last more than seven days, an examination by a healthcare provider is recommended: Thick, yellow to green discharge from the nose Face or tooth pain, especially if it is only on one side Tenderness over the maxillary sinuses (located on the left and right side of the nose, inside the cheekbones) Symptoms that initially improve and then worsen When to seek immediate help -- If you have one or more of the following symptoms, you should seek medical attention immediately (even if symptoms have been present for less than seven days): High fever (>102.5 F or 39.2 C) Sudden, severe pain in the face or head Double vision or difficulty seeing Confusion or difficulty thinking clearly Swelling or redness around one or both eyes Stiff neck, shortness of breath ACUTE SINUSITIS TREATMENT Initial treatment of a sinus infection aims to relieve symptoms since almost everyone will improve within the first seven to 10 days. Experts recommend avoiding antibiotics during this time unless there is clear evidence of a severe bacterial infection. Initial treatment Pain relief -- Non-prescription pain medications, such as acetaminophen (eg, Tylenol ) or ibuprofen (eg, Motrin , Advil ) are recommended for pain. Nasal irrigation and saline sprays -- Rinsing the nose with a salt-water (saline) solution is called nasal irrigation or nasal lavage. Saline is also available in a standard nasal spray, although this is not as effective as using larger amounts of water in an irrigation. Nasal irrigation is particularly useful for treating drainage down the back of the throat, sneezing, nasal dryness, and congestion. The treatment helps by rinsing out allergens and irritants from the nose. Saline rinses also clean the nasal lining and can be used before applying sprays containing medications, to get a better effect from the medication. Nasal lavage with warmed saline can be performed as needed, once per day, or twice daily for increased symptoms. Nasal lavage carries few risks when performed correctly. Saline nasal sprays and irrigation kits can be purchased [id number]. Saline mixes can also be purchased or patients can make their own solution. A variety of devices, including bulb syringes, Neti pots, and bottle sprayers, may be used to perform nasal lavage; instructions for nasal lavage are provided in the table. At least 200 mL (about 3/4 cup) of fluid is recommended for each nostril. Nasal decongestants -- Nasal decongestant sprays, including oxymetazoline (Afrin ) and phenylephrine (Balbir-synephrine ) can be used to temporarily treat congestion. However, these sprays should not be used for more than two to three days due to the risk of rebound congestion (when the nose is congested constantly unless the medication is used repeatedly). Other treatments -- Other treatments for congestion, such as oral antihistamines (such as diphenhydramine/Benadryl ) or zinc supplements are not proven to improve symptoms of sinusitis and can have unwanted side effects. Medications to thin secretions (such as guaifenesin) may help to clear mucus. Secondline treatment -- If symptoms have not improved in seven to ten days, you should arrange for medical evaluation. You may need further treatment. Nasal glucocorticoids -- Nasal glucocorticoids (steroids delivered by a nasal spray) can help to reduce swelling inside the nose, usually within two to three days. These drugs have few side effects and dramatically relieve symptoms in most people. There are a number of nasal glucocorticoids available by prescription. These drugs are all effective, but differ in how frequently they must be used and how much they cost. You may need to use a nasal decongestant for a few days before starting a nasal glucocorticoid to reduce nasal swelling; this will allow the nasal glucocorticoid to reach more areas of the nasal passages Do I need an antibiotic? -- If bothersome symptoms of sinusitis persist for 10 or more days, it is possible that you have bacterial sinusitis. The need for antibiotics depends upon the severity of your symptoms. Mild symptoms -- There are two possible treatment options if you have mild sinusitis symptoms: treat with antibiotics or continue to watch and wait for one week. Watching and waiting is a reasonable option because up to 75 percent of people with bacterial sinusitis improve within one month without antibiotics. During the watch and wait period, treatments to improve symptoms are recommended. If symptoms worsen or do not improve after watching and waiting, treatment with an antibiotic is usually recommended. Treatments to relieve symptoms are recommended while using antibiotics. Moderate or severe symptoms -- Most healthcare providers will prescribe an antibiotic for moderate to severe symptoms (temperature >38.3 C or 101 F and/or severe pain that interferes with usual activities). Treatments to relieve symptoms are also recommended during antibiotic treatment. One of the least expensive and most effective antibiotics for sinusitis is amoxicillin. An alternate antibiotic will be prescribed if you are allergic to penicillin. Regardless of which antibiotic is prescribed, it is important to follow the dosing instructions carefully and to finish the entire course of treatment. Taking the medication less often than prescribed or stopping the medication early can lead to complications, such as a recurrent infection. What if I do not improve with treatment? -- If you do not improve or worsen after a course of antibiotics, you should be re-examined. In some cases, symptoms of sinusitis improve but then recur. This is usually because the infection was not completely eliminated by the antibiotic. An alternate antibiotic, extended antibiotic treatment, and/or further testing may be recommended, depending upon your individual situation. documented in this encounter [facility] 09-09-2024 Note HNO ID: [id number] Author: WORMALD, FELICITA, PA-C Service: ? Author Type: Physician Marketing Operations Specialist Type: Progress Notes Filed: 09/09/2024 12:43 Note Text: [facility] Subjective Patient presents with: Sinus Infection: Entered by patient Shannon Thompson is a 39 year old female with no significant past medical history who presents to [facility] today for evaluation of cough, nasal congestion, and sinus pressure x 10 days. No fevers. Review of Systems Constitutional: Negative for chills, diaphoresis and fatigue. HENT: Positive for congestion, ear pain (bilateral ear pressure) and sinus pressure. Eyes: Negative for discharge and redness. Respiratory: Positive for cough. Negative for shortness of breath. Musculoskeletal: Negative for back pain and neck pain. Skin: Negative for rash and wound. Neurological: Negative for weakness and headaches. All other systems reviewed and are negative. Objective LMP 07/20/2023 (Approximate) Physical Exam Vitals reviewed. Constitutional: General: She is not in acute distress. Appearance: Normal appearance. She is normal weight. She is not ill-appearing or toxic-appearing. Comments: The patient appears to be non-toxic, in no acute distress, and resting comfortably on the table. HENT: Head: Normocephalic and atraumatic. Right Ear: Tympanic membrane, ear canal and external ear normal. Left Ear: Tympanic membrane, ear canal and external ear normal. Nose: Congestion present. Eyes: Extraocular Movements: Extraocular movements intact. Cardiovascular: Rate and Rhythm: Normal rate and regular rhythm. Heart sounds: Normal heart sounds. No murmur heard. No friction rub. No gallop. Pulmonary: Effort: Pulmonary effort is normal. No respiratory distress. Breath sounds: Normal breath sounds. No wheezing. Musculoskeletal: General: Normal range of motion. Cervical back: Normal range of motion. Skin: General: Skin is warm and dry. Findings: No erythema or rash. Neurological: General: No focal deficit present. Mental Status: She is alert and oriented to person, place, and time. Mental status is at baseline. Psychiatric: Mood and Affect: Mood normal. Behavior: Behavior normal. Thought Content: Thought content normal. MDM History exam are consistent with acute sinobronchitis. Patient counseled regarding suspected diagnosis and given a prescription for Augmentin. Advised to follow-up with primary care as needed for any new or worsening symptoms. ASSESSMENT/PLAN: 1. Sinobronchitis - ICD9: 473.9, 490, ICD10: J32.9, J40 (primary diagnosis) - AMOXICILLIN 875 MG-POTASSIUM CLAVULANATE 125 MG TABLET 2. Persistent cough - ICD9: 786.2, ICD10: R05.3 3. Sinus pressure - ICD9: 478.19, ICD10: J34.89 4. Ear pressure, bilateral - ICD9: 388.8, ICD10: H93.8X3 Medical Decision Making: Problems: Low: Acute, uncomplicated illness or injury Risk: Minimal: Minimal risk from testing/treatment Moderate: Drug management Medical Decision Making Level: 3 - Low I spent a total of 20 minutes on the date of the service which included preparing to see the patient, [id number] patient care, completing clinical documentation, performing a medically appropriate examination, counseling and educating the patient/family/caregiver, and ordering medications, tests, or procedures. Felicita Gomez PA-C Procedures [facility] 09-09-2024 History of Presen t illness Narrative [facility] Subjective Patient presents with: Sinus Infection: Entered by patient Shannon Thompson is a 39 year old female with no significant past medical history who presents to [facility] today for evaluation of cough, nasal congestion, and sinus pressure x 10 days. No fevers. Review of Systems Constitutional: Negative for chills, diaphoresis and fatigue. HENT: Positive for congestion, ear pain (bilateral ear pressure) and sinus pressure. Eyes: Negative for discharge and redness. Respiratory: Positive for cough. Negative for shortness of breath. Musculoskeletal: Negative for back pain and neck pain. Skin: Negative for rash and wound. Neurological: Negative for weakness and headaches. All other systems reviewed and are negative. Objective LMP 07/20/2023 (Approximate) Physical Exam Vitals reviewed. Constitutional: General: She is not in acute distress. Appearance: Normal appearance. She is normal weight. She is not ill-appearing or toxic-appearing. Comments: The patient appears to be non-toxic, in no acute distress, and resting comfortably on the table. HENT: Head: Normocephalic and atraumatic. Right Ear: Tympanic membrane, ear canal and external ear normal. Left Ear: Tympanic membrane, ear canal and external ear normal. Nose: Congestion present. Eyes: Extraocular Movements: Extraocular movements intact. Cardiovascular: Rate and Rhythm: Normal rate and regular rhythm. Heart sounds: Normal heart sounds. No murmur heard. No friction rub. No gallop. Pulmonary: Effort: Pulmonary effort is normal. No respiratory distress. Breath sounds: Normal breath sounds. No wheezing. Musculoskeletal: General: Normal range of motion. Cervical back: Normal range of motion. Skin: General: Skin is warm and dry. Findings: No erythema or rash. Neurological: General: No focal deficit present. Mental Status: She is alert and oriented to person, place, and time. Mental status is at baseline. Psychiatric: Mood and Affect: Mood normal. Behavior: Behavior normal. Thought Content: Thought content normal. MDM History exam are consistent with acute sinobronchitis. Patient counseled regarding suspected diagnosis and given a prescription for Augmentin. Advised to follow-up with primary care as needed for any new or worsening symptoms. ASSESSMENT/PLAN: 1. Sinobronchitis - ICD9: 473.9, 490, ICD10: J32.9, J40 (primary diagnosis) - AMOXICILLIN 875 MG-POTASSIUM CLAVULANATE 125 MG TABLET 2. Persistent cough - ICD9: 786.2, ICD10: R05.3 3. Sinus pressure - ICD9: 478.19, ICD10: J34.89 4. Ear pressure, bilateral - ICD9: 388.8, ICD10: H93.8X3 Medical Decision Making: Problems: Low: Acute, uncomplicated illness or injury Risk: Minimal: Minimal risk from testing/treatment Moderate: Drug management Medical Decision Making Level: 3 - Low I spent a total of 20 minutes on the date of the service which included preparing to see the patient, [id number] patient care, completing clinical documentation, performing a medically appropriate examination, counseling and educating the patient/family/caregiver, and ordering medications, tests, or procedures. Felicita Gomez PA-C Procedures documented in this encounter [facility] 07-23-2024 History of Presen t illness Narrative Images from the original note were not included. [facility] [place] [address] [facility] [address] Dept: [phone] Dept Shannon Thompson 1985 [id number] 07/23/2024 Problem List: Neck pain Intermittent cervical radiculopathy Mild cervical spondylosis (M54.12) Cervical radiculopathy (M54.2) Cervical pain (neck) (M47.812) Cervical spondylosis Chief Complaint Patient presents with New Patient Neck Pain HPI: Shannon is a 39 y.o. female who is here today for evaluation of her cervical spine. Shannon is referred by self Current symptoms: Pain is located in the neck and upper back radiating to bilateral shoulders at times Numbness tingling: denies Weakness: denies Symptoms are severely affecting their quality of life during flare ups. Moderately at times. Inciting Event/Trauma: No specific cause - thinks it started from exercising Duration of Symptoms: a few years Associated neurologic complaints/Red flags: Gait/balance difficulty: denies Use of ambulatory aid?: no device Able to walk a city block: Yes Bowel/bladder incontinence: denies Urinary retention: No Saddle anesthesia: No Fine motor task difficulty/dropping things/handwriting changes: denies History of cancer: No Aggravating factors: Overhead activity Increased or prolonged activity Sleeping/lying down Reclining/leaning back Prolonged sitting/desk work Alleviating Factors: Changing positions, getting up and moving around Previous Treatment: PT: Yes - Andrei Velasco continuous for the past few years NSAIDS: OTC Spine/Joint Injections: Shoulder Opioid medications: none Muscle relaxers: cyclobenzaprine (Flexeril) - could only take at night due to drowsiness Oral steroids: in the past Nerve medications (gabapentin/Lyrica): none Pain management: No Chiropractor: Yes Previous spine surgery: none, has seen a few providers at [facility] in the past History of DVT/PE or hypercoagulable state (including history of relative): No Blood thinning medications: none 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 No Review of Systems Tobacco Use: Low Risk (07/24/2024) Patient History Smoking Tobacco Use: Never Smokeless Tobacco Use: Never Passive Exposure: Not on file No results found for: HGBA1C No Known Allergies No current outpatient medications on file. No current facility-administered medications for this visit. History reviewed. No pertinent past medical history. History reviewed. No pertinent surgical history. Social History Socioeconomic History Marital status: Spouse name: Not on file Number of children: Not on file Years of education: Not on file Highest education level: Not on file Occupational History Not on file Tobacco Use Smoking status: Never Smokeless tobacco: Never Substance and Sexual Activity Alcohol use: Yes Alcohol/week: 1.0 standard drink of alcohol Drug use: No Sexual activity: Not on file Other Topics Concern Not on file Social History Narrative Not on file Social Drivers of Health Financial Resource Strain: Low Risk (09/13/2021) Received from [facility] Overall Financial Resource Strain (CARDIA) Difficulty of Paying Living Expenses: Not hard at all Food Insecurity: No Food Insecurity (09/13/2021) Received from [facility] Hunger Vital Sign Worried About Running Out of Food in the Last Year: Never true Ran Out of Food in the Last Year: Never true Transportation Needs: No Transportation Needs (09/13/2021) Received from [facility] PRAPARE - Transportation Lack of Transportation (Medical): No Lack of Transportation (Non-Medical): No Physical Activity: Sufficiently Active (09/13/2021) Received from [facility] Exercise Vital Sign Days of Exercise per Week: 6 days Minutes of Exercise per Session: 30 min Stress: No Stress Concern Present (02/11/2020) Received from [facility] [place] [place] [employer] - Occupational Stress Questionnaire Feeling of Stress : Not at all Social Connections: Moderately Integrated (02/11/2020) Received from [facility] Social Connection and Isolation Panel [NHANES] Frequency of Communication with Friends and Family: More than three times a week Frequency of Social Gatherings with Friends and Family: Three times a week Attends Confucianism Services: 1 to 4 times per year Active Member of Clubs or Organizations: No Attends Club or Organization Meetings: Never Marital Status: Intimate Partner Violence: Not on file Housing Stability: Not on file Family History Problem Relation Name Age of Onset No Known Problems Maternal Grandfather No Known Problems Paternal Grandmother No Known Problems Daughter Heart attack Father 40.00 Cancer Maternal Grandmother Skin Hyperlipidemia Mother Hyperlipidemia Brother No Known Problems Daughter Heart disease Father Hyperlipidemia Father Heart attack Paternal Grandfather 40.00 PHYSICAL EXAM Ht 5' 7 (1.702 m) Wt 185 lb (83.9 kg) BMI 28.98 kg/m SPINE/EXTREMITY: General: In no apparent distress, nonantalgic gait. Upper Extremity Motor: Del Bi Tri WE WF Int FF Right 5 5 5 5 5 5 5 Left 5 5 5 5 5 5 5 Upper extremity sensation to light touch: C5 C6 C7 C8 T1 Right Intact Intact Intact Intact Intact Left Intact Intact Intact Intact Intact Upper extremity reflexes: Bicep Tricep Brachioradialis Right 2+ 2+ 2+ Left 2+ 2+ 2+ Misc: [place] Right Negative Negative Left Negative Negative IMAGING The below images were independently reviewed and independently interpreted by myself. My interpretation is located in the assessment section of the note. Cervical Spine: Date of Exam: 07/23/24 Views: 2 views of the cervical spine (flexion and extension) Findings: There are minimal degenerative changes noted throughout the cervical spine. With flexion/extension views, no listhesis is present. Cervical MRI: Date of exam: 06/15/24 FINDINGS: Craniocervical junction: Within normal limits. Soft tissues: No prevertebral or paraspinal edema. No neck mass is identified. Alignment: Straightening of the usual cervical lordotic curvature without focal spinal malalignment. Cord: Normal morphology and signal intensity. Vertebrae: Normal vertebral marrow signal intensity. No compression deformities or osseous lesions. Canal and foramina: C2-C3: Patent. C3-C4: Patent. C4-C5: Patent. C5-C6: Mild degenerative disc bulging and uncovertebral joint spurring. The bulging disc mildly narrows the spinal canal with anterior CSF space effacement. The normal CSF space dorsal to the cord is maintained. The neural foramina are mildly narrowed. C6-C7: Mild spinal stenosis secondary to a central disc protrusion which produces partial effacement of the CSF spaces ventral and dorsal to the cord, without cord compression. The neural foramina are patent. C7-T1: Patent. IMPRESSION: 1. No neck masses identified. Please correlate clinically. 2. Degenerative changes with mild spinal stenosis at C5-6 and C6-7. ASSESSMENT See problem list above. Shannon is a 39 y.o. female presenting with a chief complaint of neck pain. She will intermittently get radicular symptoms as well during a flareup. I independently reviewed her imaging including her cervical radiographs as well as her cervical MRI. Per my independent interpretation, there is no high-grade stenosis present. We discussed treatment options moving forward. I discussed given the lack of high-grade stenosis on her MRI she would likely not benefit from any cervical spine surgery. That being said she has tried a variety medicines as well as physical therapy to this point. I discussed that ultimately a referral to pain management to consider some injections would be a next step in treatment. She would like to hold off at this point but will let us know if her symptoms worsen/persist in the future. PLAN: Continue physical therapy/HEP Consider referral to pain management for injections if symptoms worsen/persist Electronically signed by Sebastian Cutler MD 07/24/2024 at 7:09 AM Dictated using [employer] Version 2.4 Proof read however unrecognized voice recognition errors may have occurred documented in this encounter [facility] 08-08-2023 Instructions Anabela Vernon MD - 08/08/2023 1:36 PM EST Aleve 2 pills in am, 2 in pm for 5d If this doesn't work & want to try Lysteda, reach out via [employer] in E 200-400 international unit(s) daily for breast discomfort ACOG Screening Guidelines The following health screening schedule is recommended by the [employer] (ACOG). Some of these tests may be ordered or performed by your primary care doctor. Pap test screening The pap test looks at cells on the cervix (the opening from the vagina to the uterus) to look for cancer or pre-cancerous changes. These changes are caused by the human papillomavirus (HPV). Studies estimate that half of all women will test positive for this virus within 3 years of starting sexual activity. For young women with a normal immune system, 90% of HPV infections will resolve within 2 years. There is a vaccine available against some forms of HPV. This is recommended for girls and women age 9-45. For ages 9-14, two injections are given at 0 and 6 months. For ages 15-45, three injections are given at 0,2 and 6 months. Because this vaccine does not protect against all HPV types which can cause cervical cancer, women who received the vaccine still need pap tests. Pap smear screening should be started at age 21. The pap test should be done every 3 years from age 21-29. From age 30-65, pap smears can be done every 5 years if HPV test is negative or every 3 years if HPV testing is not done. For women over the age of 65, ACOG recommends against screening women who have had adequate prior screening and are not otherwise at high risk for cervical cancer. Women who have had a hysterectomy also do not need routine pap smear screening unless the pap smear was done for a cervical cancer or moderate to severe dysplasia. Breast cancer screening Mammogram should be performed every 1-2 years starting at age 40 and every year starting at age 50. Screening may be started earlier depending on family history. Cholesterol screening Lipid panel (cholesterol test) should be checked every 5 years starting at age 45. Diabetes screening Fasting glucose (blood sugar) test should be performed every 3 years starting at age 45. Colorectal cancer screening Starting at age 45, women should have a screening colonoscopy at least every 10 years. Screening may be started earlier depending on family history. Thyroid screening Thyroid function test (TSH) should be checked every 5 years starting at age 50. Bone mineral density screening All postmenopausal women age 65 and over and postmenopausal women with risk factors for osteoporosis should have a bone mineral density test performed. Risk factors include race, family history of osteoporosis, personal history of fractures, poor nutrition, smoking, heavy alcohol use, early menopause, low calcium intake and low body weight. Certain medical conditions and long-term use of some medications may also increase risk. Calcium and Vitamin D Supplementation (from the National Institutes of Health Office of Dietary Supplements 2011) Calcium is required by the body for blood vessel, muscle, hormone and nerve functioning. Most of the body's calcium is stored in the bones and teeth where it supports structure and function. Bone is continuously broken down and reformed. When bone breakdown exceeds formation, especially in postmenopausal women, bone loss can increase the risk of osteoporosis and fractures. In addition to low calcium intake, women who smoke, have a family history of osteoporosis, are thin, or , or who take certain medications such as cancer chemotherapy, seizure mediations and steroids are at increased risk of osteoporosis. The calcium requirements in women change with age. The National Institutes of Health (NIH) recommends: 1000mg elemental calcium for premenopausal women age 19-50 1200mg elemental calcium for postmenopausal women and all women over 50 Milk, yogurt, and cheese are rich natural sources of calcium and are the major food contributors in the [place]. For example, 8oz of milk (whole, lowfat or skim) contains about 300mg calcium, 8oz of yogurt contains 415mg. Nondairy sources include salmon and sardines and vegetables, such as [place] cabbage, kale, and broccoli. Foods fortified with calcium include many fruit juices, tofu and cereals. For more food calcium content information, visit http://ods.od.nih.gov/factsheet s/calcium. Calcium supplements come in several different forms. Remember that the recommendations are for millgrams (mg) of elemental calcium which may be less than the total weight of the supplement. The amount of elemental calcium is required to be printed on the label. Calcium carbonate is the least expensive form. It must be taken on a full stomach to be properly absorbed. Some patients may experience gas or constipation. Calcium phosphate and calcium citrate may be taken either with or without food and tend to have less side effects but are generally more expensive. Because of its ability to neutralize stomach acid, calcium carbonate is found in some jioy-aux-dwvkivg antacid products, such as Tums and Rolaids . Depending on its strength, each chewable pill or softchew provides 200 to 400 mg of elemental calcium. The percentage of calcium absorbed depends on the total amount of elemental calcium consumed at one time. Absorption is highest in doses <500mg. So a woman who takes 1,000mg/day of calcium from supplements should split the dose and take 500mg at two separate times during the day. Too much calcium can cause kidney stones, constipation, difficulty absorbing other nutrients and calcium buildup in blood vessels. Women under 50 should not exceed 2500mg/day (2000mg/day for women over 50) of calcium from food and supplements. Excessive alcohol and caffeine intake can inhibit absorption of calcium. Calcium can reduce the absorption of some medications if taken at the same time of day (bisphosphonates, thyroid medication, Phenytoin and other seizure medications, some antibiotics and iron supplements). Vitamin D promotes calcium absorption in the gut and maintains adequate blood levels of calcium and phosphate for normal bone growth and bone remodeling. Vitamin D also helps regulate cell growth as well as nerve, muscle and immune system function. Vitamin D is produced in the skin as a result of ultraviolet sunlight rays and must be altered in the liver and kidney to become its active form. Recommended intake according to the National Institutes of Health is 600 International Units (IU) for girls and women ages 1-70 and 800 IU for women over 70. Very few foods in nature contain vitamin D. The flesh of fatty fish (such as salmon, tuna, and mackerel) and fish liver oils are among the best sources. Small amounts of vitamin D are found in beef liver, cheese, mushrooms and egg yolks. Most people meet at least some of their vitamin D needs through exposure to sunlight. Season, time of day, length of day, cloud cover, smog, skin melanin content, and sunscreen are among the factors that affect UV radiation exposure and vitamin D synthesis. Despite the importance of the sun for vitamin D synthesis, it is prudent to limit exposure of skin to sunlight and avoid tanning beds. UV radiation is a carcinogen responsible for most of the estimated 1.5 million skin cancers that occur annually in the [place]. Lifetime cumulative UV damage to skin is also responsible for some age-associated dryness and other cosmetic changes. In supplements and fortified foods, vitamin D is available in two forms, D2 (ergocalciferol) and D3 (cholecalciferol). The two are equivalent at normal supplement doses. For women who require high supplement doses because of vitamin D deficiency, D3 may work better to raise blood levels. Some medications can prevent proper absorption of Vitamin D. These include laxatives, corticosteroids like prednisone, the seizure drugs phenobarbital and phenytoin, the weight-loss drug orlistat ( Xenical and AlliTM) and the cholesterol-lowering drug cholestyramine (Questran , LoCholest , and Prevalite ). Talk to your doctor about adjusting your recommended daily vitamin D dosage if you take these medications. You should not exceed 4000 mg of vitamin D supplementation daily unless specifically prescribed by your doctor. documented in this encounter [facility] 08-08-2023 History of Presen t illness Narrative RAAD is a 38 year old who presents for an annual gynecologic exam with complaints, irregular bleeding- frustrated with VB with IUD- just place ~4m ago, reviewed ideally should even out after 6m- will continue obs at this time, may consider NSAID course) Thorough past history obtained/updated/reviewed with today's visit. Pt states there are no significant changes to her past medical and surgical history. 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 Menses: before IUD 3d HEAVY, now has had up to 2w old brown discharge after IUD placed, no cramps. 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 PAST MEDICAL HISTORY Diagnosis Date History of depression treated successfully with Zoloft PAST SURGICAL HISTORY Procedure Laterality Date TOOTH EXTRACTION FAMILY HISTORY Problem Relation Age of Onset Heart Attack Father age 40 Breast Cancer No Family History Cervical Cancer No Family History Ovarian cancer No Family History Uterine Cancer No Family History Colon Cancer No Family History Pancreatic Cancer No Family History Prostate Cancer No Family History SOCIAL HISTORY Social History Tobacco Use Smoking status: Never Smokeless tobacco: Never Vaping Use Vaping Use: Never used Substance Use Topics Alcohol use: No Drug use: No REVIEW OF SYSTEMS Abdomen: No abdominal pain, nausea, vomiting, diarrhea, or constipation. Bladder: No dysuria, gross hematuria, urinary frequency, urinary urgency, or incontinence. Breast: No breast lumps, nipple d/c, overlying skin changes, redness or skin retraction and +/-SBE normal. Allergies and current medication updated:Yes EXAM: BP 128/72 Resp 18 Wt 201 lb 11.5 oz (91.5kg) LMP 07/20/2023 GENERAL: pleasant, female in no apparent distress HEENT: Normocephalic, atraumatic, mucus membranes moist, and no lesions NECK: Supple, full range of motion, no adenopathy, and thyroid normal DERMATOLOGY: Normal, without lesions, non-icteric, and non-hirsute BREAST: soft, non-tender, symmetric, no dominant mass, normal nipple-areolar complex, no lymphadenopathy, and no nipple discharge CHEST: Clear to auscultation, Normal inspiratory effort, and Regular rate and rhythm ABDOMEN: soft, non-tender, and no masses PELVIC: external genitalia normal, normal Bartholin's glands, urethra, [place]'s glands, no vulvar lesions, no cervical lesions, physiologic discharge present, normal appearing perineal body and perianal region, IUD strings visible BIMANUAL: uterus normal size, shape and consistency, no adnexal masses, and non-tender RECTOVAGINAL: deferred. NEURO: alert and oriented x3,exam grossly non-focal EXTREMITIES: normal ASSESSMENT/PLAN: 1) Health maintenance: Pap/HPV up to date. Mammogram starting age 40. Nutrition, exercise and routine health maintenance exams reviewed. Calcium/Vitamin D supplementation information provided. HPV vaccine: completed series 2) Contraception: IUD. Discussed NSAID course for unscheduled VB. 3) STD screening: Declined STD check. 4) Follow up one year or sooner as needed 5) Pt made aware that we will notify of Abnormal results only. I will use her MyChart as needed for results, she may contact office to get any results at her convenience. Anabela Vernon MD documented in this encounter [facility] 03-27-2023 Instructions Madelyn Mendoza MD - 03/27/2023 2:23 PM EDT POST IUD INSTRUCTIONS You may have irregular bleeding during the first 3 months of use. You may have mild-severe cramping for the next 48 hours. You may use over the counter medication (Motrin, Tylenol) as needed. Your IUD must be removed or replaced based on the following table: IUD Type Removed or replaced within: Cheyanne 3 years Kyleena 5 years Mirena 8 years Paragard 10 years Call my office for signs/symptoms of infection such as severe cramping, fever, or unusual bleeding. Check for string placement as instructed by your doctor. If you have any additional questions, please contact the office. documented in this encounter [facility] 03-27-2023 History of Presen t illness Narrative CJ presents today for IUD insertion for contraception, menstrual dysfunction. Patient's last menstrual period was 03/22/2023 (exact date). GC/chlamydia: Not done: no risk factors and/or patient declines screening test: negative Side effects including irregular bleeding were discussed with the patient. The patient understands that it should be removed in 8 years or sooner if the patient desires a . IUD source: office provided IUD lot #: [id number] Exp date: 2024 UNIVERSAL PROTOCOL / SAFETY CHECKLIST Procedure to be Performed: IUD Insertion (Mirena) Sign In: A Moment of CARE was completed. Personnel directly involved with the procedure wore the appropriate PPE (Personal Protective Equipment). Patient/Surrogate Stated/Verified: PATIENT VERIFIED(optional for EMERGENT procedures): Patient name, Date of , Relevant allergies, and The intended procedure Time Out Communication: Intended patient and procedure match the source documents. Consent documented and matches the intended procedure. Sign Out: SIGN OUT (optional for EMERGENT procedures): No specimen collected. No instruments, equipment or retained foreign bodies applicable. Madelyn Mendoza MD The cervix was prepped with betadine. The uterus sounded to 8 cm and the uterus is Anteverted.. Using sterile technique, the Mirena IUD was inserted without difficulty and the string was cut to 2 cm from the external os of the cervix. Patient tolerated procedure well. PLAN: Patient was advised to observe for signs and symptoms of infection including but not limited to fever, malodorous vaginal discharge and/or pain. The patient was told to check the string monthly for accurate placement. Bleeding expectations were reviewed. Follow up for next annual exam or sooner as needed. 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 She does not have any complaints. HPI: Pt is interested in discussing her options for contraception. OB History T1 L1 SAB0 IAB0 Ectopic0 Multiple0 Live Births1 Stud Setter History LMP: 09/04/2021 (Exact Date), Having periods Age at Menarche: Age at First : Age at Menopause: Stud Setter History Comments: Sexual Activity: Yes; Male Contraception: No contraception data on record PAST MEDICAL HISTORY Diagnosis Date History of depression treated successfully with Zoloft PAST SURGICAL HISTORY Procedure Laterality Date TOOTH EXTRACTION FAMILY HISTORY Problem Relation Age of Onset Heart Attack Father age 40 Breast Cancer No Family History Cervical Cancer No Family History Ovarian cancer No Family History Uterine Cancer No Family History Colon Cancer No Family History Pancreatic Cancer No Family History Prostate Cancer No Family History Social History Tobacco Use Smoking status: Never Smoker Smokeless tobacco: Never Used Substance Use Topics Alcohol use: No Drug use: No Current Outpatient Medications Medication Sig sertraline (ZOLOFT) 100 mg tablet Take 100 mg by mouth once daily. 47/iron/folate 1/dha (PNV-DHA ORAL) Take by mouth. No current facility-administered medications for this visit. Allergies As of Date: 09/21/2021 (No Known Allergies) Fully Assessed 09/21/2021 REVIEW OF SYSTEMS Abdomen: No bloating, early satiety, indigestion, or increased flatulence. No abdominal pain, nausea, vomiting, diarrhea, or constipation. Bladder: No dysuria, gross hematuria, urinary frequency, urinary urgency, or incontinence. Breast: No breast lumps, nipple d/c, overlying skin changes, redness or skin retraction. Expanded ROS: N/A Allergies and current medication updated:Yes EXAM: BP 102/60 Wt 202 lb 12.8 oz (92.0kg) LMP 09/04/2021 GENERAL: pleasant, female in no apparent distress HEENT: Normocephalic, atraumatic, mucus membranes moist and no lesions NECK: Supple, full range of motion, no adenopathy and thyroid normal DERMATOLOGY: Normal, without lesions, non-icteric and non-hirsute BREAST: soft, non-tender, symmetric, no dominant mass, normal nipple-areolar complex, no lymphadenopathy and no nipple discharge CHEST: Normal inspiratory effort ABDOMEN: soft, non-tender and no masses PELVIC: external genitalia normal, normal Bartholin's glands, urethra, [place]'s glands, no vulvar lesions, no cervical lesions, good vaginal support, physiologic discharge present, normal appearing perineal body and perianal region BIMANUAL: uterus normal size, shape and consistency, no adnexal masses and non-tender NEURO: alert and oriented x3,exam grossly non-focal EXTREMITIES: normal ASSESSMENT AND PLAN: Encounter Diagnosis ICD-10-CM 1. Encounter for annual routine gynecological examination Z01.419 PAP FLUID CERVICAL SCREENING 2. General counseling and advice for contraceptive management Z30.09 Contraception options d/w the patient. She is more inclined with vasectomy vs IUD placement. Pap smear done. Baseline mammography in 2 years. I have spent 45 minutes with the patient during history taking, exam, review of chart, documentation in the chart, education, counselling and medical decision making. Madelyn Mendoza MD documented in this encounter [facility] 06-19-2018 History of Past i llness Narrative Problem Noted Date Diagnosed Date Resolved Date Supervision of other normal , antepartum 06/19/2018 08/08/2023 documented as of this encounter (statuses as of 08/11/2023) [facility] Diagnosis Encounter for annual routine gynecological examination- Primary General counseling and advice for contraceptive management Other general counseling and advice for contraceptive management documented in this encounter [facility] note* Diagnosis examination or test, unconfirmed- Primary Encounter for IUD insertion Encounter for insertion of intrauterine contraceptive device [facility] Diagnosis Encounter for gynecological examination (general) (routine) without abnormal findings- Primary documented in this encounter [facility] note* Diagnosis Localized swelling, mass and lump, neck Swelling, mass, or lump in head and neck [facility] Diagnosis Localized swelling, mass and lump, neck Swelling, mass, or lump in head and neck [facility] Diagnosis Cervical radiculopathy- Primary Brachial neuritis or radiculitis nos Cervical pain (neck) Cervicalgia Cervical spondylosis Cervical spondylosis without myelopathy documented in this encounter [facility] note* Diagnosis Localized swelling, mass and lump, neck- Primary Swelling, mass, or lump in head and neck Localized swelling, mass and lump, neck Swelling, mass, or lump in head and neck documented in this encounter [facility] note* Diagnosis Sinobronchitis- Primary Unspecified sinusitis (chronic) Persistent cough Cough Sinus pressure Other diseases of nasal cavity and sinuses Ear pressure, bilateral [facility]* Diagnosis Localized swelling, mass and lump, neck- Primary Swelling, mass, or lump in head and neck Localized swelling, mass and lump, neck Swelling, mass, or lump in head and neck documented in this encounter [facility] noteNo assessment information availableWCleveland Clinic [facility] Work Phone: Evaluation note* Diagnosis Encounter for gynecological examination (general) (routine) without abnormal findings- Primary Screening for cervical cancer Screening for malignant neoplasm of the cervix Encounter for screening for human papillomavirus (HPV) Special screening examination for human papillomavirus (HPV) Encounter for IUD removal Encounter for removal of intrauterine contraceptive device [facility] Instruction Text No instruction information i s available. Erwin Reason for referral (narrative)* Outpatient Procedure (Routine) - Pending Review Specialty Diagnoses / Procedures Referred By Josep estrada Referred To Contact [facility] Diagnoses Encounter for IUD insertion Procedures INSERT INTRAUTERINE DEVICE LEVONORGESTREL IU 52MG 5 YR INSERT INTRAUTERINE DEVICE Madelyn Mendoza MD [address] [address] Referral ID Status Reason Start Date Expiration Date Visits Requested Visits Authorized [id number] Pending Review Auto-Generat ed Referral 03/27/2023 03/26/2024 1 1 [facility] for referral (narrative)No reason for referral information availableWCleveland Clinic [facility] Work Phone: Reason for visit Narrative* Imaging (Routine) - Closed Specialty Diagnoses / Procedures Referred By Contac t Referred To Contact Radiology Diagnoses Localized swelling, mass and lump, neck Procedures MR cervical spine wo contrast Johnny Merlos MD [address] [place] [id number] Phone: tel: fax: Referral ID Status Reason Start Date Expiration Date Visits Re quested Visits Authorized [id number] Closed 05/29/2024 05/29/2025 1 1 [facility] Summary Purpose Family History No Family History Records FoundNo Family History Records FoundNo Family History Records FoundNo Family History Records FoundNo Family History Records FoundNo Family History Records FoundNo Family History Records Found Advance Directives No Advanced Directives Records FoundNo Advanced Directives Records FoundNo Advanced Directives Records FoundNo Advanced Directives Records FoundNo Advanced Directives Records FoundNo Advanced Directives Records FoundNo Advanced Directives Records Found Hospital Course Note Patient: SHANNON THOMPSON Age: 33 years Sex: Female : 1985 Associated Diagnoses: None Author: CLAUDIA ELIZABETH MD ppd#1 s/p . No complaints. Desires discharge. Breast-feeding. vss abdomen soft, uterus firm hct 36 a/p s/p , discharge home, f/u 6 weeks Medications Administered Section Inactive Administered Medications - up to 3 most recent administrations Medication Order MAR Action Action Date Dose Rate Site levonorgestrel 21 mcg/24 hours (8 yrs) 52 mg 1 Each intrauterine device (MIRENA) 1 Each, INTRAUTERINE, ONCE (UP TO 30 DAYS AMB), 1 dose, On Sat03/27/23 at 1430, Hazardous Potential Reproductive Risk Drug: Use appropriate PPE. Given 04/01/2023 6:58 PM EDT 1 Each Additional Source Comments INFORMATION SOURCE (unrecogn ized section and content) DATE CREATED AUTHOR 09/26/2018 [facility] DATE CREATED AUTHOR AUTHOR'S ORGANIZ ATION 10/07/2018 [employer] DATE CREATED AUTHOR AUTHOR'S ORGANIZ ATION 03/03/2019 [facility] DATE CREATED AUTHOR AUTHOR'S ORGANIZ ATION 04/16/2023 [facility] DATE CREATED AUTHOR AUTHOR'S ORGANIZ ATION 07/25/2024 [facility] DATE CREATED AUTHOR AUTHOR'S ORGANIZ ATION 12/12/2024 [facility] DATE CREATED AUTHOR AUTHOR'S ORGANIZ ATION 01/02/2025 [facility] Source Comments (unrecognize d section and content) In the event this informatio n is protected by the Federal Confidentiality of Alcohol and Drug Abuse Patient Records regulations: The Federal rules restrict any use of the information to criminally investigate or prosecute any alcohol or drug abuse patient.[facility] the event this information is protected by the Federal Confidentiality of Alcohol and Drug Abuse Patient Records regulations: The Federal rules restrict any use of the information to criminally investigate or prosecute any alcohol or drug abuse patient.[facility] the event this information is protected by the Federal Confidentiality of Alcohol and Drug Abuse Patient Records regulations: The Federal rules restrict any use of the information to criminally investigate or prosecute any alcohol or drug abuse patient.[facility] the event this information is protected by the Federal Confidentiality of Alcohol and Drug Abuse Patient Records regulations: The Federal rules restrict any use of the information to criminally investigate or prosecute any alcohol or drug abuse patient.[facility] the event this information is protected by the Federal Confidentiality of Alcohol and Drug Abuse Patient Records regulations: The Federal rules restrict any use of the information to criminally investigate or prosecute any alcohol or drug abuse patient.[facility] the event this information is protected by the Federal Confidentiality of Alcohol and Drug Abuse Patient Records regulations: The Federal rules restrict any use of the information to criminally investigate or prosecute any alcohol or drug abuse patient.[facility] Reason for Visit (unrecogniz ed section and content) Reason Comments Care Reason Onset Date Comments Insertion Of IUD Insertion Of IUD 03/27/2023 Specialty Diagnoses / Procedures Referred By Contfilipe t Referred To Contact SOCIAL MEDIA CONTENT SPECIALIST Diagnoses Contraception management Encounter for insertion of intrauterine contraceptive device Encounter for removal of intrauterine contraceptive device Procedures INSERT INTRAUTERINE DEVICE REMOVE INTRAUTERINE DEVICE Madelyn Mendoza MD [address] [place] [id number] Morning Caregiver [address] [address] Referral ID Status Reason Start Date Expiration Date V isits Requested Visits Authorized [id number] Authorized 02/11/2023 06/23/2023 1 2 Reason Comments [facility] Reason Comments New Patient Neck Pain Reason Comments Sinus Infection Entered by patient Sinus Problem Coughing up dark mikey ff, has been a week. Reason Comments [facility] Care Teams (unrecognized sec tion and content) Commissioning Agent Relationship Specialty Start Date End Date Ana Buenrostro MD [facility] [place] [address] PCP - General 09/13/21 Commissioning Agent Relationship Specialty Start Date End Date Ana Buenrostro MD [facility] [address] [place] [address] PCP - General 09/13/21 Commissioning Agent Relationship Specialty Start Date End Date Ana Buenrostro MD [facility] [address] [place] [address] PCP - General 09/13/21 Commissioning Agent Relationship Specialty Start Date End Date Ana Buenrostro MD [facility] [address] [place] [address] PCP - General 09/13/21 Commissioning Agent Relationship Specialty Start Date End Date Ana Buenrostro MD [facility] [address] [place] [address] PCP - General 09/13/21 Team Status: Active Member Role Status Dates Belem VELAZQUEZ CONTACT WORKER [employer]-C Primary Care Provider Activ e Team Status: Inactive Member Role Status Dates Belem VELAZQUEZ CONTACT WORKER [employer]-C Primary Care Provider Activ e Start: December 02, 2024 End: December 02, 2024 Belem VELAZQUEZ, CONTACT WORKER L[employer]OGR[employer]HY-C Attending Provider Active Start: December 02, 2024 End: December 02, 2024 Goals (unrecognized section and content) Goals may be documented in a n alternate section FOR RECORDS PERTAINING TO PATIENTS WHO ARE OR HAVE BEEN ENROLLED IN A CHEMICAL DEPENDENCY/SUBSTANCEABUSE PROGRAM, SOME INFORMATION MAY BE OMITTED. This clinical summary was aggregated from multiple sources. Caution should be exercised in using it in the provision of clinical care. This summary normalizes information from multiple sources, and as a consequence, information in this document may materially change the coding, format and clinical context of patient data. In addition, data may be omitted in some cases. CLINICAL DECISIONS SHOULD BE BASED ON THE PRIMARY CLINICAL RECORDS. [facility] [employer] [facility]. provides no warranty or guarantee of the accuracy or completeness of information in this document.
--- NOTE | 2025-03-26 10:45 | MRI_ITS ---
PROCEDURE: LOWER EXT JOINT ONLY (ROUTINE) 03/26/2025 REASON FOR EXAM: PIN IN LT ANKLE/FOOT TECHNIQUE: Procedure Code: MRILEJ Modality: MR Procedure: LOWER EXT JOINT ONLY (ROUTINE) Multiplanar and multisequence images were obtained without IV contrast administration. COMPARISON: COMPARISON : FINDINGS: Ligaments and tendons: No anterior or posterior tibiofibular ligament tear. No anterior or posterior talofibular ligament tear. No calcaneofibular ligament tear. No deep deltoid ligament tear. No Lisfranc ligament tear. No flexor tendon abnormality about the ankle. No extensor tendon abnormality about the ankle. Peroneus brevis tendinosis, with attenuating longitudinal split tear about the lateral malleolus, with distal reconstitution and no definite retracted fibers. No Achilles tendon abnormality. No plantar fascia abnormality. Bones and soft tissues: No chondral or osteochondral lesion in the talar dome or tibial plafond. No subtalar joint chondral defect. Small posterior facet subtalar joint effusion. No ankle effusion. No significant talonavicular joint arthrosis or effusion. No evidence of tarsal or proximal metatarsal fracture or stress fracture. Degenerative signal changes in the base of the 5th metatarsal. No soft tissue mass, cyst or abnormal fluid collection. Mild superficial edema overlies the ankle, hindfoot and midfoot. Mild pre Achilles fat pad edema. MRI/Lower Ext Joint Only (Routine) IMPRESSION: Peroneus brevis tendinosis with attenuating longitudinal split tear about the l ateral malleolus, and distal reconstitution. Mild degenerative signal changes in the 5th metatarsal base. Small posterior facet subtalar joint effusion. Mild superficial edema. Mild pre Achilles fat pad edema. Reading Location: [facility]
== END | disposition home or self-care (01) ==
PROVIDERS: PCP Nurse Practitioner Family; Referring Provider Physician Assistant Surgical; Visit Provider Physician Assistant Surgical
DX: M21.42 Flat foot [pes planus] (acquired), left foot (principal); M25.572 Pain in left ankle and joints of left foot
CPT/HCPCS: 73721

== ENCOUNTER → 2025-04-12 | Outpatient (CLI) | payer OTHER, SELFPAY ==
--- NOTE | 2025-04-12 10:14 | MRI_ITS ---
PROCEDURE: LOWER EXT/JT ONLY/W CONTRAST 04/12/2025 REASON FOR EXAM: TROCHANTERIC BURSITIS,RIGHT HIP, PAIN IN RIGHT HIP TECHNIQUE: Procedure Code: [id number] Modality: MR Procedure: Right hip MR arthrogram. COMPARISON: None. FINDINGS: Intra-articular contrast material is present. A prominent tear of the anterior acetabular labrum is seen, extending somewhat laterally and medially, as well No evidence of femoral head osteonecrosis. No arthritic changes are seen. The region of the greater trochanter shows no abnormal signal, and no free or loculated fluid collection is noted. Mild edema is seen within the tissues adjacent to the greater trochanter, however, consistent with the clinical history of trochanteric bursitis, however. MRI/Lower Ext/Jt Only/W Contrast IMPRESSION: Acetabular labral tear. Reading Location: [address]
--- NOTE | 2025-04-12 10:30 | RAD_ITS ---
PROCEDURE: ARTHROGRAM HIP W/ MRI 04/12/2025 REASON FOR EXAM: RIGHT HIP PAIN TECHNIQUE: Procedure Code: [facility] Modality: DX Procedure: ARTHROGRAM HIP W/ MRI The patient was in the supine position. The overlying skin was prepped and draped in the usual sterile fashion. Following local anesthetic application and under direct fluoroscopic guidance, puncture of the right hip joint was performed. 2 cc of Isovue-300 was injected to confirm to confirmed placement. Following this, 10 cc of dilute MRI contrast was injected. The patient tolerated the procedure well. Fluoroscopy: 31 seconds. Radiation dose: 11 mGy. 1 image was obtained. COMPARISON: None FINDINGS: Successful right hip arthrogram for MRI examination. RAD/Arthrogram Hip w/ MRI IMPRESSION: Successful right hip arthrogram for MRI examination. No immediate complication is noted. Reading Location: [place] [id number]
[2025-04-12] MEDS: Lidocaine 2% (5ml sdv) 5 ML VIAL.MPF (10:42)
[2025-04-12] MEDS: Gadoterate Meglumine Diluted 10 ML, Iopamidol 5 ML, Lidocaine 1% (20 ml mdv) 5 ML, Epin... INTRAARTIC (10:44)
[2025-04-12] MEDS: Iopamidol 10 ML in Syringe 1 EACH 600 ML INTRAARTIC (10:44)
== END | disposition home or self-care (01) ==
LOC: RAD 09:58
PROVIDERS: PCP Nurse Practitioner Family; Referring Provider Physician Assistant Surgical; Visit Provider Physician Assistant Surgical
DX: M21.42 Flat foot [pes planus] (acquired), left foot (principal); M25.572 Pain in left ankle and joints of left foot; N28.9 Disorder of kidney and ureter, unspecified; M70.61 Trochanteric bursitis, right hip; M25.551 Pain in right hip
CPT/HCPCS: 27093; 73722; 77002; Q9967